=== PATIENT | male | born 1965 | race Caucasian/White ===

== ENCOUNTER 2024-08-22 14:44 | Outpatient (AMB) | payer BC, SELFPAY ==
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
--- OUTSIDE RECORDS SUMMARY | 2024-08-22 14:46 | XMS_ITS | Data Portability ---
Author Organization [place] [facility] [place] Address [address] [place] [id number] Care Team Providers Care Oral And Maxillofacial Surgery Resident Name Role Phone MARY MEYERS Referring Provider Assessment Encounter Date Assessment Date Assessment LastModified by Organization Details LastModified Time 03/07/2024 03/07/2024 Symptoms and exa m are consistent with Right Knee Osteoarthritis. X-rays were reviewed together on the computer together. We reviewed the natural history of osteoarthritis. Diagrams and a model were used to demonstrate the areas of arthritic change. The patient understands that symptoms may progress over time requiring further intervention. We discussed in detail available treatment options. We discussed activity modification, especially avoiding impact type activities. Low or no impact activities such as walking, swimming, elliptical and biking were suggested. We discussed the need for an ongoing maintenance flexibility and strengthening program. This should involve the core musculature, the hip, as well as the quadriceps and hamstrings. Intermittent icing 20 minutes off in 3 to 4 times a day may be helpful for control of swelling. A course of Physical Therapy may be helpful with acute symptoms and progress to a targeted home exercise program. Semb-hhl-bllvfvr anti-inflammatory medications with appropriate GI precautions or Tylenol may be helpful in controlling intermittent symptoms of pain. An assistive device such as a cane may be helpful in unloading the joint. The role of bracing was discussed including off loading brace. Advantages, disadvantages, and limitations of braces were discussed. Advantages of weight loss and maintaining ideal weight was discussed. Injections options, including corticosteroids, gel (Hyaluronic Acid), and platelet rich plasma (PRP) injections were reviewed. After discussion, the patient was eager for an injection. Patient tolerated the injection well. Postinjection instructions given. Frequency of injection was reviewed. Patient will follow-up in 3 to 4 weeks if symptoms have not improved, sooner for any complications. All questions answered to their satisfaction. Patient was seen and evaluated by Anselmo Aguirre PA-C in indirect conjunction with Dr. Clay. The provider agrees with the history, physical examination, recommended tests/diagnostic imaging, and treatment plan. [email or web address] Not available 03/07/2024 16:38:20 04/13/2024 04/13/2024 Marcos has right shoulder pain secondary to glenohumeral arthritis and impingement. He had a recent exacerbation when his dog pulled him. There was no evidence of a high-grade rotator cuff tear. We discussed treatment options. He is not interested in physical therapy. He would like to try corticosteroid injection. After discussion, the patient was eager for an injection. Patient tolerated the injection well. Postinjection instructions given. Frequency of injection was reviewed. Patient will follow-up in 3 to 4 weeks if symptoms have not improved, sooner for any complications. All questions answered to their satisfaction. Realistic expectations were emphasized. Will follow-up in 3 to 4 weeks if symptoms have not improved, sooner for any complications. Not available 04/13/2024 16:06:12 Plan of Treatment Reminders Order Date Submit Date Provider Last Modified By Organization Details Last Modified Time Details Appointments None recorded. Lab None recorded. Referral None recorded. Procedures None recorded. Surgeries None recorded. Imaging XR, knee, 4 or more view 2023 024 [email or web address] 9 [facility], [address], [address], [place], [address], 4 06:47:30 XR, shoulder, 2 or more view 2023 024 [email or web address] 21 [facility], [address], [address], [place], [address], 4 09:38:06 Medication Orders lidocaine (PF) 100 mg/5 mL (2 %) injection syringe 2023 024 Not available 07/09/202 4 16:01:41 triamcinolo ne acetonide 40 mg/mL suspension for injection 2023 024 Not available 4 16:01:41 lidocaine (PF) 100 mg/5 mL (2 %) injection syringe 2023 024 [employer] [facility][id number], [address], [place], [place], [phone], 4 16:09:04 triamcinolo ne acetonide 40 mg/mL suspension for injection 2023 024 [employer] [facility] #[id number], [address], [place], [place], [phone], 4 16:09:04 Patient TargetsNo targets recorded. Patient Instructions Encounter Date Encounter Id Patient Instructions Last Modified By Organization Details Last Modified Time 03/07/2024 [id number] Radiographs: 4 views of {{the Left the Right* Both}} knee(s) were obtained in the {{[facility]* [facility]} } office on {{ 03/07/2024#}} including AP, West, lateral (weightbearing), and sunrise. X-rays demonstrated {{normal* mildly decreased}} bony mineralization. Joint spaces {{well-maintained decrease medially* decrease d Laterally decrease d patellafemoral space decreased medial and lateral decreased medial and patellafemoral dec reased lateral and patellafemoral dec reased all compartments}} {{. subchondral sclerosis, tibial spiking and osteophytosis. sub chondral sclerosis and osteophytosis.#}} No evidence of acute injury or fracture. Findings: {{Normal Osteoarth ritis* Mild Osteoarthritis Mod erate Osteoarthritis Sev ere Endstage Osteoarthritis}} {{Right Knee* Left Knee Both Knees}}. X-ray interpretation by: KANU [email or web address] Not available 03/07/2024 16:37:29 04/13/2024 [id number] Radiographs: 4 Views of the {{Right* Left Bila teral}} shoulder were obtained in the {{[place]* [facility]} } office on {{ 04/13/2024#}} including AP, Grashey, Y and axillary views. X-rays demonstrated {{normal* mildly decreased}} bony mineralization. {{No significant Mild M oderate* Severe}} degenerative changes in the AC joint with {{no* mild moderat e significant}} widening. {{.* Subacromial spur noted.}} Glenohumoral joint space {{well-maintained mildly narrowed moderatel y narrowed* severely narrowed}}{{.* ent hesophytes and degenerative changes in the humeral head.}} {{No abnormal* small la rge}} calcifications in the lateral shoulder{{.* consi stent with calcific tendinitis.}} {{No evidence of acute injury or fracture* No evidence of fracture}}. Interpretation by: Anselmo Aguirre PA-C [email or web address] Not available 04/13/2024 16:10:27 Reason for Referral None Reported. Problems Name Problem SNOMED Code Status Onset Date Resolution Date Notes Provider Name and Address Organization Details Recorded Time Osteoarthri tis of right knee joint 4194880629217 00 Active [address], [place], [address], [place] [facility] 4 16:35:48 Impingement syndrome of right shoulder region 7817919643689 02 Active [address], [place], [address], [place] [facility] 4 16:08:18 Arthritis of right glenohumera l joint 5144002483186 109 Active 2023 ANSELMO AGUIRRE PA-C [address], [place], [address], [place] [facility] 4 16:08:43 Problem Notes None recorded. Procedures Surgical History Date Name Laterality Status Provider Name and Address Organization Details Recorded Time 4 GLENYS Subacromial Shoulder Inj completed [address], [place], [address], [place] [facility] 04/13/2024 16:04:22 4 GLENYS Knee Injection completed ANSELMO AGUIRRE PA-C [address], [place], [address], [place] [facility] 03/07/2024 16:34:45 Knee Surgery completed [facility] 03/07/2024 16:09:06 fusion completed [facility] 03/07/2024 16:09:13 Imaging Results None recorded. Procedure Notes None recorded. Medical Equipment None Reported. Allergies No known drug allergies Medications Name Sig Start Date Stop Date Status Note LastModified by Organization Details LastModified Time gabapentin 600 mg tablet TAKE 1 TABLET BY MOUTH THREE TIMES DAILY active Not Available Not Available No t Available meloxicam 15 mg tablet TAKE 1 TABLET BY MOUTH DAILY active Not Available Not Available No t Available triamcinolone acetonide 40 mg/mL suspension for injection Take 40 mg by injection route. 2023 active Not Available Not Available Not Avai lable levothyroxine 150 mcg tablet TAKE 1 TABLET BY MOUTH DAILY active Not Available Not Available No t Available azelastine 137 mcg (0.1 %) nasal spray USE 1 SPRAY IN EACH NOSTRIL TWICE DAILY NEEDED FOR ALLERGIES active Not Available Not Available No t Available fluticasone propionate 50 mcg/actuation nasal spray,suspens ion SHAKE LIQUID AND USE 1 SPRAY IN EACH NOSTRIL TWICE DAILY active Not Available Not Available No t Available metformin ER 500 mg tablet,extend ed release 24 hr TAKE 3 TABLETS BY MOUTH DAILY active Not Available Not Available No t Available rosuvastatin 10 mg tablet TAKE 1 TABLET BY MOUTH DAILY active Not Available Not Available No t Available BD Ultra-Fine Short Pen Needle 31 gauge x 5/16 USE WITH LANTUS EVERY DAY active Not Available Not Available No t Available FreeStyle Lite Meter kit USE TO TEST BLOOD SUGAR EVERY DAY active Not Available Not Available No t Available FreeStyle Lite Strips USE TO TEST BLOOD SUGAR EVERY DAY active Not Available Not Available No t Available lidocaine (PF) 100 mg/5 mL (2 %) injection syringe Take 4 mL by injection route. 2023 active Not Available Not Available Not Avai william Sarahygltobi (insulin glargine-yfgn ) Pen 100 unit/mL (3 mL) subcutaneous INJECT 20UNITS UNDER THE SKIN EVERY NIGHT AT BEDTIME TITRATE BY 2 UNITS EVERY 5 DAYS UP TO 60 UNITS EVERY DAY active Not Available Not Available No t Available Vitals Date Recorded Body height Body mass index (BMI) Body weight Provider Name and Address Organization Details Last Updated DateTime 03/07/2024 190.5 cm 30 kg/m2 851392.17 g Adriana Brown [place] - [facility], 03/07/2024 16:07:42 Social History Question Answer Notes LastModified by Organizat ion Details LastModified Time Tobacco Smoking Status Former Smoker Adriana Brown [facility], [place] - [facility], 03/07/2024 16:07:54 What Is Your Level Of Alcohol Consumption? None Information not available 03/07/2024 Do You Use Any Illicit Or Recreational Drugs? No Information not available 03/07/2024 Do You Or Have You Ever Used Any Other Forms Of Tobacco Or Nicotine? No Information not available 03/07/2024 Sex: Unknown Functional Status None recorded. Mental Status None recorded. Family History Relationship Description Onset Age of this Age Resolved Age Notes LastModified by Organization Details LastModified Time Mother Arthritis Not available 03/07/2024 16:08:55 Sister Arthritis Not available 03/07/2024 16:08:55 Medical History Condition Response Diabetes Y Past Encounters Encounter ID Performer Location Encounter Start Date Encounter Closed Date Diagnosis/Indication Diagnosis SNOMED-CT Code Diagnosis ICD10 Code [id number] Elías Clay MD [facility] [address] [place] [address], [address] [place] [address] 03/07/2024 15:29:35 03/07/2024 16:31:36 Pain of right knee joint 7599926121 04233 M25.561 Osteoarthr itis of right knee joint 4890463482 98898 M17.11 [id number] Chong Brown MD [facility] [address] [facility] [address] [place] [phone] 04/13/2024 14:56:37 04/13/2024 16:03:26 Pain of right shoulder joint [id number] 7510466 M25.511 Impingemen t syndrome of right shoulder region 0713191201 14378 M75.41 Arthritis of right glenohumeral joint 8084715912 865206 M19.011 Health Concerns Section Related Observation LastModified by Organization Detai ls LastModified Time None Recorded Concern Status LastModified by Organization Details LastModified Time None Recorded Advance Directives Directive None Recorded Payers Encounter Date Sequence Insurance Name Policy Number Policy Huff Covered Member ID Huff Member ID Guarantor Name 03/07/2024 1 [place] [id number] Marcos Aldana [id number] Marcos Aldana 04/13/2024 1 [id number] [id number] Marcos Aldana [id number] Marcos Aldana Notes Date Note Type Note Provider Name and Address Organization Details Recorded Time 03/07/2024 text/html Patient is a 59-year-old male who presents today with right knee pain.Symptoms are progressively worsened with a recent exacerbation. He had been previously seen by Dr. Thomas and had arthroscopy. He did have gel injection in the past with offered some relief. He has noted increased tightness in his knee and limited motion. He presents today for orthopedic urgent care evaluation.Pain is greatest in the medial, but does have some lateral knee pain as well. [address], [place], [address], [place] [facility] 03/07/2024 16:40:30 04/13/2024 text/html Marcos is a 59-year-old male who presents today with right shoulder pain. Symptoms started 40 years ago. He had arthroscopy 20 years ago. 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 He is tolerated his symptoms over the years. Unfortunately, his symptoms were exacerbated a few months ago. He was looking away from his dog who suddenly ran and jerked his shoulder. He had increased pain which he was hoping would improve. Symptoms have persisted. He presents today for orthopedic consultation. No neck pain. No numbness or tingling. [address], [place], [address], [place] [facility] 04/13/2024 16:11:11
--- OUTSIDE RECORDS SUMMARY | 2024-08-22 14:46 | XMS_ITS | Continuity of Care Document ---
Author Organization [facility] Adult Address [address] [place] [address]- Care Team Providers Care Cloth Presser Name Role Phone Micky Rose MD Primary Care Physician [phone] Encounter [facility] Date(s): 07/18/24 - 08/17/24 [facility] [address] [place] [address]- Encounter Type: Triage Allergies, Adverse Reactions, Alerts [...] influenza virus vaccine, inactivated 05/15/13 Chivo rded [id number] 12y+ bivalent booster vax 08/09/22 Recorded SARS-CoV-2 [...] acel(Tdap) 7 07/10/10 Given 1Result Comment: [06/23/2018] [facility] [id number] 2Result Comment: [11/11/2013] per pt history 3Result Comment: [facility] [address] 4Result Comment: [facility] [address] 5Admin Note: [employer] [facility] 6Admin Note: [employer] [facility] 7Admin Note: [employer] Medications azelastine 137 mcg/inh (0.1%) nasal spray 1 sprays, Nares, Both, 2 times a day, PRN Other Allergies, # 1 each, 5 Refills, Maintenance, 05/26/23 3:53:00 PM EDT, [place], [facility] #[id number], Partial fill upon patient request if the prescription is for a schedule II opioid drug., 1 sprays Nares, Both 2 times a day,x30 days,PRN:Other Allergies, 184.25, cm, 05/26/23 15:43:00 EDT, Height Start Date: 05/26/23 Stop Date: 11/22/23 Status: Ordered Quantity: 1.0 Unit: each Repeat number: 6 B-D PEN NDL SHRT [id number](01/13) SELENA B-D PEN NDL SHRT [id number](01/13) SELENA, See Instructions, # 100 each, 0 Refills, DIRECTED WITH SOLOSTAR PEN EVERY DAY, 184.25, cm, 02/06/21 10:11:00 EDT, Height Start Date: 10/17/21 Status: Ordered Quantity: 100.0 Unit: each Repeat number: 1 B-D PEN NDL SHRT [id number](01/13) SELENA B-D PEN NDL SHRT [id number](01/13) SELENA, See Instructions, # 100 each, 3 Refills, Maintenance, DIRECTED WITH SOLOSTAR PEN EVERY DAY, 08/29/22 1:47:00 PM EST, 184.25, cm, 08/11/22 15:58:00 EST, Height Start Date: 08/29/22 Status: Ordered Quantity: 100.0 Unit: each Repeat number: 1 fluticasone 50 mcg/inh nasal spray 1 sprays, Nares, Both, 2 times a day, # 1 each, 11 Refills, Maintenance, 07/07/23 10:35:00 AM EST, [facility] #[id number], Partial fill upon patient request if the [...] 5 Refills, Maintenance, 05/11/24 3:02:00 PM EDT, [facility] #[id number], 184.25, cm, 05/05/24 15:28:00 EDT, Height Start Date: 05/11/24 Status: Ordered Quantity: 90.0 Unit: tablet Repeat number: 1 levothyroxine 150 mcg (0.15 mg) oral tablet 1 tablet, By Mouth, Daily, # 30 tablet, 5 Refills, Maintenance, 06/01/24 11:29:00 AM EDT, [facility] #[id number], 184.25, cm, 05/05/24 15:28:00 EDT, Height Start Date: 06/01/24 Status: Ordered Quantity: 30.0 Unit: tablet Repeat number: 6 meloxicam 15 mg oral tablet 1 tablet, By Mouth, Daily, # 30 tablet, 5 Refills, Maintenance, 05/16/24 11:47:00 AM EDT, [facility] #[id number], 184.25, cm, 05/05/24 15:28:00 EDT, Height Start Date: 05/16/24 Status: Ordered Quantity: 30.0 Unit: tablet Repeat number: 6 MetFORMIN (Eqv-Glucophage XR) 500 mg oral tablet, extended release 3 tablet, By Mouth, Daily, # 90 tablet, 5 Refills, Maintenance, 08/15/24 10:27:00 AM EST, [facility] #[id number], 184.25, cm, 05/05/24 15:28:00 EDT, Height Start Date: 08/15/24 Status: Ordered Quantity: 90.0 Unit: tablet Repeat [...] 200.0 Unit: each Repeat number: 6 Pen Fleming, 31 G x 8 mm BD Ultra [...] 1 Refills, Maintenance, 07/18/24 9:04:00 AM EST, [facility] #[id number], 184.25, cm, 05/05/24 15:28:00 EDT, Height Start Date: 07/18/24 Status: Ordered Quantity: 90.0 Unit: tablet Repeat number: 2 Semglee (Prefilled Pen) 100 units/mL subcutaneous solution See Instructions, INJECT 20UNITS UNDER THE SKIN EVERY NIGHT AT BEDTIME TITRATE BY 2 UNITS EVERY 5 DAYS UP TO 60 UNITS EVERY DAY, # 15 mL, 5 Refills, Maintenance, 01/27/24 10:43:00 AM EDT, [facility] #[id number], 184.25, cm, 09/01/23 16:02:00 EST, Height Start [...] Team Personnel Name: Micky Rose MD Position: [facility] Physician - Primary Care Member Role: PCP Address: [address] [place] [address]- Telecom: Care Team Related Persons Name: SHAKILA JORDAN Insurance Providers Guarantor name: MIKE JORDAN Health Plan Information #: 1 Payer: BLUE BENEFIT [employer] PPO Member Number: NA Policy Number: NA Group Number: NA
--- NOTE | 2024-08-22 14:47 | A.OFFVIS_ITS ---
Vital Signs 08/22/24 14:53 Height 6 ft 3 in Weight 230 lb BMI 28.7 Intake Visit Reasons: Right shoulder pain and weakness Intake Note: Marcos is a 59 year old male who presents with complaints of progressively worsening right shoulder pain and weakness. The patient states that he did undergo right shoulder surgery several years ago. Did fairly well from that surgery initially. The patient states that he re-injured his shoulder approximately 6 months ago while walking his dog. The dog pulled hard on the leash when it saw a squirrel and yanked on his arm. The patient felt a ?pop? at that time. Since that time the patient has had difficulty lifting his right hand above shoulder height. He has failed the last 6 weeks of conservative treatment which has included physical therapy exercises, Tylenol and anti- inflammatory medicines. He reports difficulty lifting his right hand above shoulder height. Has had injections in the past which gave him minimal relief. The most recent injection was several months ago given by another provider. Allergies No Known Allergies Allergy (Verified 08/22/24 14:54) Medication List - Last Reconciled 08/22/24 by Deandre Cordoba MD gabapentin mg PO insulin glargine-yfgn (Semglee (insulin glargine-yfgn) Pen) units subcut levothyroxine mcg PO meloxicam mg PO metformin ER mg PO rosuvastatin mg PO Physical Exam Vital Signs: BMI result Body Mass Index 28.7 Const Other: Well-nourished well-developed very friendly male awake alert and oriented x3 in no acute distress Extrem Other: Bilateral lower extremity examination shows good capillary refill, no skin lesions noted, normal sensation light touch Right shoulder examination shows slightly decreased range of motion when compared to his left shoulder, 4/5 strength with supraspinatus testing, positive impingement signs, tenderness over his acromioclavicular joint, no instability Results Reviewed Results Reviewed: X-rays of the patient's right shoulder show severe acromioclavicular joint narrowing, a type 2 acromion, no acute bony abnormalities Assessment & Plan Assessment & Plan (1) Right shoulder pain: Code(s): M25.511 - Pain in right shoulder Category: Medical (2) Rotator cuff insufficiency of right shoulder: Code(s): M25.311 - Other instability, right shoulder Category: Medical Plan Mr. Moretz presents with progressively worsening right shoulder pain and weakness due to impingement syndrome, acromioclavicular joint arthritis and possible full-thickness rotator cuff tearing. Thus, I will send the patient for an MRI of his right shoulder for further evaluation. I will see him back once the MRI is completed to discuss the findings and treatment options. Feel free to call me at any time should questions regarding his orthopedic management arise. I spent 20 minutes in reviewing the patient's records and imaging studies, seeing the patient and documenting in the medical record. Orders: Orders XR shoulder RT min 2V Today M25.511 - Pain in right shoulder MR shoulder RT wo con Today M25.511 - Pain in right shoulder Coding Level of Care Code New Pt Level 3 (83238) Complex EM visit Add On G2211 Diagnoses Right shoulder pain M25.511 Rotator cuff insufficiency of right shoulder M25.311
[2024-08-22 14:53] VITALS: BMI 28.7
== END 2024-08-22 15:31 | disposition home or self-care (01) ==
PROVIDERS: Visit Provider Orthopaedic Surgery
DX: M25.511 Pain in right shoulder (principal); M25.311 Other instability, right shoulder
CPT/HCPCS: 99203

== ENCOUNTER → 2024-08-22 14:46 | Outpatient (BNV) | payer BC, SELFPAY | PROVIDERS: Visit Provider Radiology Diagnostic Radiology | DX: M19.011 Primary osteoarthritis, right shoulder (principal) | CPT/HCPCS: 73030 ==

== ENCOUNTER 2024-08-22 15:45 | Outpatient (REF) | payer BC, SELFPAY ==
--- NOTE | ~2024-08-22 | XR_ITS ---
EXAMINATION: XR SHOULDER RIGHT CLINICAL INFORMATION: Pain in right shoulder M25.511. COMPARISON: None TECHNIQUE: Two views of the right shoulder. FINDINGS: Normal bone mineralization. No fracture, dislocation, subluxation, or suspicious bone lesion. Mild hypertrophic arthropathy of the AC joint with predominantly superior surface spurring. Laterally downsloping acromion. No loss of the subacromial space. Mild arthritic changes in the glenohumeral joint with gross preservation of joint space. No soft tissue abnormalities. Imaged lung clear. Incidental note made of cervical fusion hardware, incompletely imaged. XR/XR shoulder RT min 2V IMPRESSION: 1. No acute findings right shoulder. 2. Mild osteoarthrosis in the AC joint and glenohumeral joint. Electronically signed by: Curt Reynoso MD 09/14/2024 08:40 AM KRISTEN
--- OUTSIDE RECORDS SUMMARY | 2024-08-25 15:47 | XMS_ITS | Data Portability ---
Author Organization [place] [facility] [place] Address [address] [place] [address] Care Team Providers Care Public School Teacher Name Role Phone MARY MEYERS Referring Provider [...] progress to a targeted home exercise program. Saio-tql-epvnoae anti-inflammatory medications with appropriate GI precautions or [...] examination, recommended tests/diagnostic imaging, and treatment plan. [email or web address] Not available 03/07/2024 16:38:20 04/13/2024 04/13/2024 Marcos [...] have not improved, sooner for any complications. [email or web address] Not available 04/13/2024 16:06:12 Plan of Treatment Reminders Order Date Submit Date Provider Last Modified By Organization Details Last Modified Time Details Appointments None recorded. Lab None recorded. Referral None recorded. Procedures None recorded. Surgeries None recorded. Imaging XR, knee, 4 or more view 2023 024 [email or web address] 9 [facility], [address], [address], [place], [address], 4 06:47:30 XR, shoulder, 2 or more view 2023 024 [email or web address] 21 [facility], [address], [place], [address], 4 09:38:06 Medication Orders lidocaine (PF) 100 mg/5 mL (2 %) injection syringe 2023 024 Not available 07/09/202 4 16:01:41 triamcinolo ne acetonide 40 mg/mL suspension for injection 2023 024 Not available 4 16:01:41 lidocaine (PF) 100 mg/5 mL (2 %) injection syringe 2023 024 Seculert 21 [id number], [address], [place], [place], [phone], 4 16:09:04 triamcinolo ne acetonide 40 mg/mL suspension for injection 2023 024 [email or web address] 21 [facility] #[id number], [address], [place], [place], [phone], 4 16:09:04 Patient TargetsNo targets recorded. Patient Instructions Encounter Date Encounter Id Patient Instructions Last Modified By Organization Details Last Modified Time 03/07/2024 [id number] Radiographs: 4 views of {{the Left the Right* Both}} knee(s) were obtained in the {{[facility]* [facility]} } office on {{ 03/07/2024#}} including [...] KANU Raza21 Not available 03/07/2024 16:37:29 04/13/2024 [id number] Radiographs: 4 Views of the {{Right* Left Bila teral}} shoulder were obtained in the {{[place]* [facility]} } office on {{ 04/13/2024#}} including [...] of fracture}}. Interpretation by: Anselmo Aguirre PA-C Not available 04/13/2024 16:10:27 Reason for Referral None Reported. Problems Name Problem SNOMED Code Status Onset Date Resolution Date Notes Provider Name and Address Organization Details Recorded Time Osteoarthri tis of right knee joint 3098840172053 00 Active [address], [place], [address], [place] [facility], P 4 16:35:48 Impingement syndrome of right shoulder region 1016250821465 02 Active [address], [place], [address], [place] [facility], [facility] 4 16:08:18 Arthritis of right glenohumera l joint 4450201336530 109 Active 2023 ANSELMO AGUIRRE PA-C [address], [place], [address], [place] [facility], [facility] 4 16:08:43 Problem Notes None recorded. Procedures Surgical History Date Name Laterality Status Provider Name and Address Organization Details Recorded Time 4 GLENYS Subacromial Shoulder Inj completed [address], [place], [address], [place] [facility], P 04/13/2024 16:04:22 4 GLENYS Knee Injection completed ANSELMO AGUIRRE PA-C [address], [place], [address], [place] [facility], P 03/07/2024 16:34:45 Knee Surgery completed [facility] - [facility], P 03/07/2024 16:09:06 fusion completed [facility], P 03/07/2024 16:09:13 Imaging Results None recorded. [...] Updated DateTime 03/07/2024 190.5 cm 30 kg/m2 384653.17 g Adriana Brown [place] - [facility], 03/07/2024 16:07:42 Social History Question Answer Notes LastModified by Organizat ion Details LastModified Time Tobacco Smoking Status Former Smoker Adriana Brown [facility], [place] - [facility], 03/07/2024 16:07:54 What Is Your Level Of [...] Diagnosis/Indication Diagnosis SNOMED-CT Code Diagnosis ICD10 Code [id number] Elías Clay MD [facility] [address] [place] [address], [address] [place] [address] 03/07/2024 15:29:35 03/07/2024 16:31:36 Pain of right knee joint 8592474151 83400 M25.561 Osteoarthr itis of right knee joint 1547718153 01390 M17.11 [id number] Chong Brown MD [facility] [address] [facility] [address] [place] [address] 04/13/2024 14:56:37 04/13/2024 16:03:26 Pain of right shoulder joint 8384123869 2115148 M25.511 Impingemen t syndrome of right shoulder region 1679555523 52996 M75.41 Arthritis of right glenohumeral joint 0846190355 428016 M19.011 Health Concerns Section Related Observation LastModified by Organization Detai ls LastModified Time None Recorded Concern Status LastModified by Organization Details LastModified Time None Recorded Advance Directives Directive None Recorded Payers Encounter Date Sequence Insurance Name Policy Number Policy Huff Covered Member ID Huff Member ID Guarantor Name 03/07/2024 1 [place] [id number] Marcos Aldana [id number] Marcos Aldana 04/13/2024 1 [place] [id number] Marcos Aldana [id number] Marcos Aldana Notes Date Note Type [...] pain as well. [address], [place], [address], [place] [facility], P 03/07/2024 16:40:30 04/13/2024 text/html Marcos is a 59-year-old male who presents today with right shoulder pain. Symptoms started 40 years ago. He had arthroscopy 20 years ago. 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 He is tolerated his symptoms over the years. Unfortunately, his symptoms were exacerbated a few months ago. He was looking away from his dog who suddenly ran and jerked his shoulder. He had increased pain which he was hoping would improve. Symptoms have persisted. He presents today for orthopedic consultation. No neck pain. No numbness or tingling. [address], [place], [address], [place] [facility], P 04/13/2024 16:11:11
--- OUTSIDE RECORDS SUMMARY | 2024-08-25 15:47 | XMS_ITS ---
[facility] Name [facility] Organization Unknown History of Medication Use Medication Directions Dispensed Refills Start Date End Date Stat azelastine 137 mcg (0.1 %) nasal spray USE 1 SPRAY IN EACH NOSTRIL TWICE DAILY NEEDED FOR ALLERGIES 04/16/2024 active rosuvastatin 10 mg tablet TAKE 1 TABLET BY MOUTH DAILY 04/16/2024 active BD Ultra-Fine Short Pen Needle 31 gauge x 01/13 USE WITH LANTUS EVERY DAY 04/16/2024 active lidocaine (PF) 100 mg/5 mL (2 %) injection syringe Take 4 mL by injection route. 04/16/2024 active meloxicam 15 mg tablet TAKE 1 TABLET BY MOUTH DAILY 04/16/2024 active fluticasone propionate 50 mcg/actuation nasal spray,suspension SHAKE LIQUID AND USE 1 SPRAY IN EACH NOSTRIL TWICE DAILY 04/16/2024 active metformin ER 500 mg tablet,extended release 24 hr TAKE 3 TABLETS BY MOUTH DAILY 04/16/2024 active levothyroxine 150 mcg tablet TAKE 1 TABLET BY MOUTH DAILY 04/15/2024 active gabapentin 600 mg tablet TAKE 1 TABLET BY MOUTH THREE TIMES DAILY 04/15/2024 active Semglee (insulin glargine-yfgn) Pen 100 unit/mL (3 mL) subcutaneous INJECT 20UNITS UNDER THE SKIN EVERY NIGHT AT BEDTIME TITRATE BY 2 UNITS EVERY 5 DAYS UP TO 60 UNITS EVERY DAY 04/15/2024 active triamcinolone acetonide 40 mg/mL suspension for injection Take 40 mg by injection route. 04/15/2024 active triamcinolone acetonide 40 mg/mL suspension for injection 03/09/2024 active lidocaine (PF) 100 mg/5 mL (2 %) injection syringe 03/09/2024 active Problems Problem Status Onset Date Problem Type Date of Resoluti on Source Osteoarthritis of right knee joint active 2024-03-07 ProblemAct ENS_AONECT Impingement syndrome of right shoulder region active 2024-04-13 ProblemAct ENS_AO NECT Arthritis of right glenohumeral joint active 2024-04-13 ProblemAct ENS_AONEC T
== END 2024-08-22 15:46 | disposition home or self-care (01) ==
LOC: HO.HOSX 15:45
PROVIDERS: Visit Provider Orthopaedic Surgery
DX: M25.511 Pain in right shoulder (principal)
CPT/HCPCS: 73030

== ENCOUNTER → 2024-09-24 11:51 | Outpatient (BNV) | payer OTHER, SELFPAY | PROVIDERS: PCP Internal Medicine; Visit Provider Radiology Diagnostic Radiology | DX: M19.011 Primary osteoarthritis, right shoulder (principal) | CPT/HCPCS: 73221 ==

== ENCOUNTER 2024-09-24 12:01 | Outpatient (REF) | payer OTHER, SELFPAY ==
--- NOTE | ~2024-09-24 | MR_ITS ---
EXAMINATION: MRI RIGHT SHOULDER WITHOUT CONTRAST HISTORY: M25.511 - Pain in right shoulder COMPARISON: Correlation is made with plain films of the right shoulder dated 08/22/2024. TECHNIQUE: Coronal T1, T2, and fat suppressed T2, axial fat suppressed proton density, and sagittal T2 weighted MR images of the right shoulder were obtained. FINDINGS: Bone marrow signal intensity is normal. There is moderate osteoarthritis of the AC joint with cartilage loss and osteophyte formation. There is mild osteoarthritis of the glenohumeral joint. There is no significant joint effusion. There is mild irregularity of the joint surface of the distal supraspinatus tendon, compatible with a partial tear. No definite full-thickness tear is seen. There is no significant fluid in the subdeltoid/subacromial bursa. The infraspinatus, teres minor, and subscapularis tendons are intact. The biceps tendon is normally located. The glenoid labrum is grossly unremarkable in appearance. MR/MR shoulder RT wo con IMPRESSION: 1. Moderate osteoarthritis of the AC joint. Mild osteoarthritis of the glenohumeral joint. 2. Findings compatible with a partial joint surface tear of the distal supraspinous tendon. No definite full-thickness tear is seen. Electronically signed by: Lorne Bae MD 09/26/2024 09:58 AM EST
--- NOTE | ~2024-09-24 | XR_ITS ---
CLINICAL HISTORY: PRE MRI ORBITS MRI Screening XR PRE MRI SCREENING Comparison: None Findings: No acute fractures. No sinus fluid. Mastoids are clear. No radiopaque foreign body. IMPRESSION: 1. No metallic foreign bodies in the orbits. This document has been electronically signed by: Paulo Stallings MD on 09/24/2024 11:37:51
--- OUTSIDE RECORDS SUMMARY | 2024-09-24 12:17 | XMS_ITS | Data Portability ---
Author Organization [place] [facility] [place] Address [address] [place] [address] Care Team Providers Care Bead Maker Name Role Phone MARY MEYERS Referring Provider [phone] Assessment Encounter Date Assessment Date Assessment LastModified [...] progress to a targeted home exercise program. Unbs-pzj-bwmgocd anti-inflammatory medications with appropriate GI precautions or [...] examination, recommended tests/diagnostic imaging, and treatment plan. [email or web address] Not available 03/07/2024 16:38:20 04/13/2024 04/13/2024 Marcos [...] have not improved, sooner for any complications. [email or web address] Not available 04/13/2024 16:06:12 Plan of Treatment Reminders Order Date Submit Date Provider Last Modified By Organization Details Last Modified Time Details Appointments None recorded. Lab None recorded. Referral None recorded. Procedures None recorded. Surgeries None recorded. Imaging XR, knee, 4 or more view 2023 024 [email or web address] 9 [facility], [address], [address], [place], [address], 4 06:47:30 XR, shoulder, 2 or more view 2023 024 [email or web address] 21 [facility], [address], [place], [address], 4 09:38:06 Medication Orders lidocaine (PF) 100 mg/5 mL (2 %) injection syringe 2023 024 Not available 07/09/202 4 16:01:41 triamcinolo ne acetonide 40 mg/mL suspension for injection 2023 024 Not available 4 16:01:41 lidocaine (PF) 100 mg/5 mL (2 %) injection syringe 2023 024 Plated 21 [id number], [address], [place], [place], [phone], 4 16:09:04 triamcinolo ne acetonide 40 mg/mL suspension for injection 2023 024 Plated 21 [facility][id number], [address], [place], [place], [phone], 4 16:09:04 Patient TargetsNo targets recorded. Patient Instructions Encounter Date Encounter Id Patient Instructions Last Modified By Organization Details Last Modified Time 03/07/2024 [id number] Radiographs: 4 views of {{the Left the Right* Both}} knee(s) were obtained in the {{[facility]* [facility]} } office on {{ 03/07/2024#}} including [...] KANU Raza21 Not available 03/07/2024 16:37:29 04/13/2024 [id number] Radiographs: 4 Views of the {{Right* Left Bila teral}} shoulder were obtained in the {{[facility]* [facility]} } office on {{ 04/13/2024#}} including [...] of fracture}}. Interpretation by: Anselmo Aguirre PA-C [email or web address] Not available 04/13/2024 16:10:27 Reason for Referral None Reported. Problems Name Problem SNOMED Code Status Onset Date Resolution Date Notes Provider Name and Address Organization Details Recorded Time Osteoarthri tis of right knee joint 5264342798670 00 Active [address], [place], [address], [place] [facility], [facility] 4 16:35:48 Impingement syndrome of right shoulder region 8112977419620 02 Active [address], [place], [address], [place] [facility], [facility] 4 16:08:18 Arthritis of right glenohumera l joint 2805103237309 109 Active 2023 ANSELMO AGUIRRE PA-C [address], [place], [address], [place] [facility], [facility] 4 16:08:43 Problem Notes None recorded. Procedures Surgical History Date Name Laterality Status Provider Name and Address Organization Details Recorded Time 4 GLENYS Subacromial Shoulder Inj completed [address], [place], [address], [place] [facility], P 04/13/2024 16:04:22 4 GLENYS Knee Injection completed ANSELMO AGUIRRE PA-C [address], [place], [address], [place] [facility], P 03/07/2024 16:34:45 Knee Surgery completed [facility], P 03/07/2024 16:09:06 fusion completed [facility], P 03/07/2024 16:09:13 Imaging Results None recorded. [...] Updated DateTime 03/07/2024 190.5 cm 30 kg/m2 651862.17 g Adriana Brown [place] - [facility], 03/07/2024 16:07:42 Social History Question Answer Notes LastModified by Organizat ion Details LastModified Time Tobacco Smoking Status Former Smoker Adriana Brown [facility], [place] - [facility], 03/07/2024 16:07:54 What Is Your Level Of Alcohol Consumption? None [email or web address] Information not available 03/07/2024 Do You Use [...] Diagnosis/Indication Diagnosis SNOMED-CT Code Diagnosis ICD10 Code Diagnosis Note [id number] Elías Clay MD [facility] [address] [place] [address] [address] [place] [address] 03/07/2024 15:29:35 03/07/2024 16:31:36 Pain of right knee joint 3719047813 78031 M25.561 Additional diagnosis detail: Pain in joint of right knee Osteoarthr itis of right knee joint 6164229230 56108 M17.11 Additional diagnosis detail: Primary osteoarthr itis of right knee 70869 Chong Brown MD [address] [place] [address] 04/13/2024 14:56:37 04/13/2024 16:03:26 Pain of right shoulder joint 3276855973 8613799 M25.511 Impingemen t syndrome of right shoulder region 3533026993 17477 M75.41 Arthritis of right glenohumeral joint 2867780413 840738 M19.011 Health Concerns Section Related Observation LastModified by Organization Detai ls LastModified Time None Recorded Concern Status LastModified by Organization Details LastModified Time None Recorded Advance Directives Directive None Recorded Payers Encounter Date Sequence Insurance Name Policy Number Policy Huff Covered Member ID Huff Member ID Guarantor Name 03/07/2024 1 [place] [id number] Marcos Aldana [id number] Marcos Aldana 04/13/2024 1 [place] [id number] Marcos Aldana [id number] Marcos Aldana Notes Date Note Type [...] pain as well. [address], [place], [address], [place] [facility], [facility] 03/07/2024 16:40:30 04/13/2024 text/html Marcos is a 59-year-old male who presents today with right shoulder pain. Symptoms started 40 years ago. He had arthroscopy 20 years ago. 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 He is tolerated his symptoms over the years. Unfortunately, his symptoms were exacerbated a few months ago. He was looking away from his dog who suddenly ran and jerked his shoulder. He had increased pain which he was hoping would improve. Symptoms have persisted. He presents today for orthopedic consultation. No neck pain. No numbness or tingling. [address], [place], [address], [place] [facility], [facility] 04/13/2024 16:11:11
--- OUTSIDE RECORDS SUMMARY | 2024-09-24 12:18 | XMS_ITS | Clinical Summary ---
Author Organization [facility] Address [address] [place] [address] Care Team Providers Care It Support Consultant Name Role Phone Micky Rose MD Primary Care Provider [phone] Social History Tobacco Use Types Packs/Day Years Used Date Smoking Tobacco: Never Assessed Sex and Gender Information Value Date Recorded Sex Assigned at Not on file Gender Identity Not on file Sexual Orientation Not on file Job Start Date Occupation Industry Not on file Not on file Not on file Plan of Treatment Upcoming Encounters Date Type Department Care Team (Late st Contact Info) Description 10/25/2024 2:30 PM EST Office Visit Gastroenterology - [address] [facility] [address] [place] [phone] Ray Agosto MD [address] [facility] [address] [place] [address] Health Maintenance Due Date Last Done Comments DTaP,Tdap,and Td Vaccines (1 - Tdap) 1982 Zoster Vaccines (1 of 2) 2013 COVID-19 Vaccine ( - 2023-2 5 season) 2024 Influenza Vaccine (#1) 2024 Cholesterol Screening (Lipid Panel) 08/29/2024 Colorectal Cancer Screening: Colonoscopy 08/29/2024 Depression Screening 08/29/2024 HIV Screening 08/29/2024 Hepatitis C Screening 08/29/2024 Social Influencers of Health Screening 08/29/2024 RSV Immunization Patients 60 + Years Old (1 - 1-dose 75+ series) 2038 HIB Vaccines Aged Out No longer eligi ble based on patient's age to complete this topic HPV Vaccines Aged Out No longer eligi ble based on patient's age to complete this topic Hepatitis A Vaccines Aged Out No long er eligible based on patient's age to complete this topic Hepatitis B Vaccines Aged Out No long er eligible based on patient's age to complete this topic IPV Vaccines Aged Out No longer eligi ble based on patient's age to complete this topic MMR Vaccines Aged Out No longer eligi ble based on patient's age to complete this topic Meningococcal ACWY Vaccine Aged Out N o longer eligible based on patient's age to complete this topic Pneumococcal Vaccine: Pediat rics (0 to 5 Years) and At-Risk Patients (6 to 64 Years) Aged Out No longer eligible b ased on patient's age to complete this topic RSV Immunization Patients Un yomaira 20 months Aged Out No longer eligible b ased on patient's age to complete this topic Varicella Vaccines Aged Out No longer eligible based on patient's age to complete this topic Care Teams It Support Consultant Relationship Specialty Start Date End Date Micky Rose MD [address] [place] [address] PCP - General Internal Medicine 08/29/24
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
== END 2024-09-24 12:02 | disposition home or self-care (01) ==
LOC: HO.MRI 12:01
PROVIDERS: PCP Internal Medicine; Visit Provider Orthopaedic Surgery
DX: M25.511 Pain in right shoulder (principal)
CPT/HCPCS: 73221

== ENCOUNTER 2024-11-08 14:44 | Outpatient (AMB) | payer OTHER, SELFPAY ==
[2024-11-08 14:47] VITALS: BMI 28.7
--- NOTE | 2024-11-08 14:47 | A.OFFVIS_ITS ---
Vital Signs 11/08/24 14:47 Height 6 ft 3 in Weight 230 lb BMI 28.7 Intake Visit Reasons: Right shoulder pain and stiffness Intake Note: Marcos is a 59 year old male who presents with complaints of progressively worsening right shoulder pain and stiffness. The patient states that he did undergo right shoulder surgery several years ago. Did fairly well from that surgery initially. The patient states that he re-injured his shoulder approximately 6 months ago while walking his dog. The dog pulled hard on the leash when it saw a squirrel and yanked on his arm. The patient felt a ?pop? at that time. Since that time the patient has had difficulty lifting his right hand above shoulder height. He has failed the last 6 weeks of conservative treatment which has included physical therapy exercises, Tylenol and anti- inflammatory medicines. He reports difficulty lifting his right hand above shoulder height. Has had injections in the past which gave him minimal relief. The most recent injection was several months ago given by another provider. Allergies No Known Allergies Allergy (Verified 11/08/24 14:47) Medication List - Last Reconciled 11/08/24 by Deandre Cordoba MD gabapentin mg PO insulin glargine-yfgn (Semglee (insulin glargine-yfgn) Pen) units subcut levothyroxine mcg PO meloxicam mg PO metformin ER mg PO rosuvastatin mg PO Physical Exam Vital Signs: BMI result Body Mass Index 28.7 Const Other: Well-nourished well-developed very friendly male awake alert and oriented x3 in no acute distress Extrem Other: Bilateral upper extremity examination shows good capillary refill, no skin lesions noted, normal sensation light touch Right shoulder examination shows decreased active and passive range of motion when compared to his left shoulder, 4+ out of 5 strength with supraspinatus testing, positive impingement signs, tenderness over his acromioclavicular joint, no instability Results Reviewed Results Reviewed: MRI of the patient's right shoulder show severe acromioclavicular joint narrowing, a type 2 acromion, signal change within the supraspinatus tendon most likely due to adhesive capsulitis Assessment & Plan Assessment & Plan (1) Impingement syndrome of right shoulder: Code(s): M75.41 - Impingement syndrome of right shoulder Category: Medical Plan Mr. Aldana presents with progressively worsening right shoulder pain and stiffness due to impingement syndrome, acromioclavicular joint arthritis and adhesive capsulitis. I had a lengthy discussion with the patient regarding the treatment options. At this point the patient has failed continued non operative treatments. The risks and benefits of right shoulder arthroscopic surgery were discussed at length with the patient. The patient wishes to proceed with surgery. Surgery will most likely involve right shoulder diagnostic arthroscopy with distal clavicle excision, acromioplasty, capsular release and manipulation under anesthesia. The patient will be scheduled for next available date. He will follow-up as instructed. Feel free to call me at any time should questions regarding his orthopedic management arise. I spent 21 minutes in reviewing the patient's records and imaging studies, seeing the patient and documenting in the medical record. Coding Level of Care Code Est Pt Level 3 (08065) Complex EM visit Add On G2211 Diagnoses Impingement syndrome of right shoulder M75.41
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
--- OUTSIDE RECORDS SUMMARY | 2024-11-08 18:05 | XMS_ITS | Data Portability ---
Author Organization [place] [facility] [place] Address [address] [place] [id number] Care Team Providers Care Coding Advisor Name Role Phone MARY MEYERS Referring Provider [phone] Assessment Encounter Date Assessment Date Assessment LastModified [...] progress to a targeted home exercise program. Locg-wgp-[id number] anti-inflammatory medications with appropriate GI precautions or [...] examination, recommended tests/diagnostic imaging, and treatment plan. [email or web address] Not available 03/07/2024 16:38:20 04/13/2024 04/13/2024 Marcos [...] have not improved, sooner for any complications. [email or web address] Not available 04/13/2024 16:06:12 Plan of Treatment Reminders Order Date Submit Date Provider Last Modified By Organization Details Last Modified Time Details Appointments None recorded. Lab None recorded. Referral None recorded. Procedures None recorded. Surgeries None recorded. Imaging XR, shoulder, 2 or more view 2023 024 [email or web address], [address], [address], [place], [address], 4 09:38:06 XR, knee, 4 or more view 2023 024 [email or web address] 9 [facility], [address], [place], [address], 4 06:47:30 Medication Orders lidocaine (PF) 100 mg/5 mL (2 %) injection syringe 2023 024 [place] [address] [facility][id number], [address], [place], [place], [id number], 4 16:09:04 triamcinolo ne acetonide 40 mg/mL suspension for injection 2023 024 dana 21 [facility][id number], [address], [place], [place], [id number], 4 16:09:04 lidocaine (PF) 100 mg/5 mL (2 %) injection syringe 2023 024 Not available 4 16:01:41 triamcinolo ne acetonide 40 mg/mL suspension for injection 2023 024 Not available 16:01:41 Patient TargetsNo targets recorded. Patient Instructions Encounter Date Encounter Id Patient Instructions Last Modified By Organization Details Last Modified Time 03/07/2024 [id number] Radiographs: 4 views of {{the Left the Right* Both}} knee(s) were obtained in the {{Owlin* Dinesh} } office on {{ 03/07/2024#}} including [...] KANU [email or web address] Not available 03/07/2024 16:37:29 04/13/2024 [id number] Radiographs: 4 Views of the {{Right* Left Bila teral}} shoulder were obtained in the {{Alleman* Dinesh} } office on {{ 04/13/2024#}} including [...] of fracture}}. Interpretation by: Anselmo Aguirre PA-C [email or web address] Not available 04/13/2024 16:10:27 Reason for Referral None Reported. Problems Name Problem SNOMED Code Status Onset Date Resolution Date Notes Provider Name and Address Organization Details Recorded Time Osteoarthri tis of right knee joint 0354419754714 00 Active [address], [place], [address], [place] [facility], [facility] 4 16:35:48 Impingement syndrome of right shoulder region 6888942554043 02 Active [address], [place], [address], [place] [facility], P 4 16:08:18 Arthritis of right glenohumera l joint 9105280751105 109 Active 2023 ANSELMO AGUIRRE PA-C [address], [place], [address], [place] [facility], P 4 16:08:43 Problem Notes None recorded. Procedures Surgical History Date Name Laterality Status Provider Name and Address Organization Details Recorded Time 4 GLENYS Subacromial Shoulder Inj completed [address], [place], [address], [place] [facility], P 04/13/2024 16:04:22 4 GLENYS Knee Injection completed ANSELMO AGUIRRE PA-C [address], [place], [address], [place] [facility], P 03/07/2024 16:34:45 Knee Surgery completed [facility] - [facility], P 03/07/2024 16:09:[address] [facility], P 03/07/2024 16:09:13 Imaging Results None recorded. [...] Updated DateTime 03/07/2024 190.5 cm 30 kg/m2 213460.17 g Adriana Brown MD - [facility], 03/07/2024 16:07:42 Social History Question Answer Notes LastModified by Organizat ion Details LastModified Time Tobacco Smoking Status Former Smoker Adriana Brown [facility], [place] - [facility], 03/07/2024 16:07:54 What Is Your Level Of [...] SNOMED-CT Code Diagnosis ICD10 Code Diagnosis Note [id number] Elías Clay MD [facility] [address] [place] [address] [address] [place] [address] 03/07/2024 15:29:35 03/07/2024 16:31:36 Pain of right knee joint 3535201346 11362 M25.561 Additional diagnosis detail: Pain in joint of right knee Osteoarthr itis of right knee joint 6280504302 61766 M17.11 Additional diagnosis detail: Primary osteoarthr itis of right knee 28961 Chong Brown MD [address] [place] [phone] 04/13/2024 14:56:37 04/13/2024 16:03:26 Pain of right shoulder joint 9484861649 [id number] M25.511 Impingemen t syndrome of right shoulder region 9126124290 94706 M75.41 Arthritis of right glenohumeral joint 3615500033 264153 M19.011 Health Concerns Section Related Observation LastModified by Organization Detai ls LastModified Time None Recorded Concern Status LastModified by Organization Details LastModified Time None Recorded Advance Directives Directive None Recorded Payers Encounter Date Sequence Insurance Name Policy Number Policy Huff Covered Member ID Huff Member ID Guarantor Name 03/07/2024 1 [place] [id number] Marcos Aldana [id number] Marcos Aldana 04/13/2024 1 [place] [id number] Marcos Aldana [id number] Marcos Aldana Notes Date Note Type [...] pain as well. [address], [place], [address], [place] [facility], [facility] 03/07/2024 16:40:30 04/13/2024 text/html Marcos is a 59-year-old male who presents today with right shoulder pain. Symptoms started 40 years ago. He had arthroscopy 20 years ago. 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 He is tolerated his symptoms over the years. Unfortunately, his symptoms were exacerbated a few months ago. He was looking away from his dog who suddenly ran and jerked his shoulder. He had increased pain which he was hoping would improve. Symptoms have persisted. He presents today for orthopedic consultation. No neck pain. No numbness or tingling. [address], [place], [address], [place] [facility], [facility] 04/13/2024 16:11:11
--- OUTSIDE RECORDS SUMMARY | 2024-11-08 18:05 | XMS_ITS | Continuity of Care Document ---
Author Organization [facility] Address [address] [place] [address]- Care Team Providers Care Hedge Fund Principal Name Role Phone Micky Rose MD Primary Care Physician [place] [facility] [place]04[place]24 - 11/03/24 [facility] [address] [place] [address]- Encounter Type: Triage Allergies, Adverse Reactions, Alerts [...] influenza virus vaccine, inactivated 05/15/13 Chivo rded [id number] 12y+ bivalent booster vax 08/09/22 Recorded SARS-CoV-2 [...] acel(Tdap) 7 07/10/10 Given 1Result Comment: [06/23/2018] [facility] [id number] 2Result Comment: [11/11/2013] per pt history 3Result Comment: [place] [facility] [address] 4Result Comment: [facility] [address] 5Admin Note: [facility] 6Admin Note: [facility] 7Admin Note: [facility] Medications azelastine 137 mcg/inh (0.1%) nasal spray 1 sprays, Nares, Both, 2 times a day, PRN Other Allergies, # 1 each, 5 Refills, Maintenance, 05/26/23 3:53:00 PM EDT, [place], [facility] #[id number], Partial fill upon patient request if the prescription is for a schedule II opioid drug., 1 sprays Nares, Both 2 times a day,x30 days,PRN:Other Allergies, 184.25, cm, 05/26/23 15:43:00 EDT, Height Start Date: 05/26/23 Stop Date: 11/22/23 Status: Ordered Quantity: 1.0 Unit: each Repeat number: 6 B-D PEN NDL SHRT [id number](01/13) SELENA B-D PEN NDL SHRT [id number](01/13) SELENA, See Instructions, # 100 each, 0 Refills, DIRECTED WITH SOLOSTAR PEN EVERY DAY, 184.25, cm, 02/06/21 10:11:00 EDT, Height Start Date: 10/17/21 Status: Ordered Quantity: 100.0 Unit: each Repeat number: 1 B-D PEN NDL SHRT [id number](01/13) SELENA B-D PEN NDL SHRT [id number](01/13) SELENA, See Instructions, # 100 each, 0 Refills, Maintenance, USE WITH LANTUS EVERY DAY, 10/04/24 11:00:00 AM EST, 184.25, cm, 10/03/24 15:33:00 EST, Height Start Date: 10/04/24 Status: Ordered Quantity: 100.0 Unit: each Repeat number: 1 B-D PEN NDL SHRT [id number](01/13) SELENA B-D PEN NDL SHRT [id number](01/13) SELENA, See Instructions, # 100 each, 3 Refills, Maintenance, DIRECTED WITH SOLOSTAR PEN EVERY DAY, 08/29/22 1:47:00 PM EST, 184.25, cm, 08/11/22 15:58:00 EST, Height Start Date: 08/29/22 Status: Ordered Quantity: 100.0 Unit: each Repeat number: 1 fluticasone 50 mcg/inh nasal spray 1 sprays, Nares, Both, 2 times a day, # 1 each, 11 Refills, Maintenance, 07/07/23 10:35:00 AM EST, [facility] #[id number], Partial fill upon patient request if the [...] 5 Refills, Maintenance, 05/11/24 3:02:00 PM EDT, [facility] #[id number], 184.25, cm, 05/05/24 15:28:00 EDT, Height Start Date: 05/11/24 Status: Ordered Quantity: 90.0 Unit: tablet Repeat number: 1 levothyroxine 150 mcg (0.15 mg) oral tablet 1 tablet, By Mouth, Daily, # 30 tablet, 5 Refills, Maintenance, 06/01/24 11:29:00 AM EDT, [facility] #[id number], 184.25, cm, 05/05/24 15:28:00 EDT, Height Start Date: 06/01/24 Status: Ordered Quantity: 30.0 Unit: tablet Repeat number: 6 meloxicam 15 mg oral tablet 1 tablet, By Mouth, Daily, # 30 tablet, 5 Refills, Maintenance, 05/16/24 11:47:00 AM EDT, [facility] #[id number], 184.25, cm, 05/05/24 15:28:00 EDT, Height Start Date: 05/16/24 Status: Ordered Quantity: 30.0 Unit: tablet Repeat number: 6 MetFORMIN (Eqv-Glucophage XR) 500 mg oral tablet, extended release 3 tablet, By Mouth, Daily, # 90 tablet, 5 Refills, Maintenance, 08/15/24 10:27:00 AM EST, [facility] #[id number], 184.25, cm, 05/05/24 15:28:00 EDT, Height Start [...] 200.0 Unit: each Repeat number: 6 Pen [place], 31 G x 8 mm BD Ultra [...] 1 Refills, Maintenance, 07/18/24 9:04:00 AM EST, [facility] #[id number], 184.25, cm, 05/05/24 15:28:00 EDT, Height Start Date: 07/18/24 Status: Ordered Quantity: 90.0 Unit: tablet Repeat number: 2 Semglee (Prefilled Pen) 100 units/mL subcutaneous solution See Instructions, INJECT 20UNITS UNDER THE SKIN EVERY NIGHT AT BEDTIME TITRATE BY 2 UNITS EVERY 5 DAYS UP TO 60 UNITS EVERY DAY, # 15 mL, 5 Refills, Maintenance, 01/27/24 10:43:00 AM EDT, [facility] #[id number], 184.25, cm, 09/01/23 16:02:00 EST, Height Start Date: 01/27/24 Status: Ordered Quantity: 15.0 Unit: mL Repeat number: 1 sertraline 100 mg oral tablet 1 tablet = 100 mg, By Mouth, Daily, dose increase, # 30 tablet, 11 Refills, Maintenance, 10/03/24 3:42:00 PM EST, [place], [facility] #[id number], Partial fill upon patient request if the [...] Team Personnel Name: Micky Rose MD Position: [facility] Physician - Primary Care Member Role: PCP Address: [address] [place] [id number] Telecom: Care Team Related Persons Name: SHAKILA JORDAN Insurance Providers Guarantor name: MIKE JORDAN Health Plan Information #: 1 Payer: [employer] PPO Member Number: NA Policy Number: NA Group Number: NA
--- OUTSIDE RECORDS SUMMARY | 2024-11-08 18:05 | XMS_ITS | Encounter Summary ---
Author Organization [facility] Address [address] [place] [address] Care Team Providers Care Turn Down Man Name Role Phone Micky Rose MD Primary Care Provider [phone] Reason for Visit * Imaging (Routine) - Pending Review Specialty Diagnoses / Procedures Referred By Keshia ley Referred To Contact Radiology Diagnoses BRONSON (nonalcoholic steatohepatitis) Procedures US Abdomen Limited US Abdomen Complete Ray Agosto MD [address] [address] Phone: tel: fax: [address] [address] Phone: tel: Referral ID Status Reason Start Date Expiration Date V isits Requested Visits Authorized [id number] Pending Review 10/25/2024 10/25/2025 1 1 Encounter Details Date Type Department Care Team (Latest Contact Info) Description 11/02/2024 6:42 AM EST - 11/02/2024 11:59 PM EST Hospital Encounter [facility] Ultrasound [address] [place] [address] BRONSON (nonalcoholic steatohepatitis) Discharge Disposition: Home or Self Care Social History Tobacco Use Types Packs/Day Years Used Date Smoking Tobacco: Some Days Cigarettes Smokeless Tobacco: Never Alcohol Use Standard Drinks/Week Comments Yes 0 (1 standard drink = 0.6 oz pur e alcohol) Sex and Gender Information Value Date Recorded Sex Assigned at Male 10/26/2024 11:30 AM EST Legal Sex Male 1:03 AM EST Gender Identity Male 10/26/2024 11:30 AM EST Sexual Orientation Straight 10/26/2024 11 :30 AM EST documented as of this encounter Medications at Time of Discharge BD Ultra-Fine Short Pen Needle 31 gauge x 5/16 needle 1 each by subcutaneous (via wearable injector) route 1 (one) time. 10/04/2024 blood sugar diagnostic (FreeStyle Lite Strips) test strip 1 each by Other route 1 (one) time. 07/05/2024 FreeStyle Lite Meter monitoring kit 1 each by subcutaneous (via wearable injector) route if needed. 11/23/2023 gabapentin (NEURONTIN) 600 mg tablet Take 1 tablet (600 mg total) by mouth 2 (two) times a day. levothyroxine (SYNTHROID, LEVOTHROID) 150 mcg tablet Take 1 tablet (150 mcg total) by mouth 1 (one) time each day. meloxicam (MOBIC) 15 mg tablet Take 1 tablet (15 mg total) by mouth 1 (one) time each day. 10/06/2024 metFORMIN XR (GLUCOPHAGE-XR) 500 mg 24 hr tablet Take 3 tablets (1,500 mg total) by mouth 1 (one) time each day. 10/17/2024 rosuvastatin (CRESTOR) 10 mg tablet Take 1 tablet (10 mg total) by mouth. 07/18/2024 sertraline (ZOLOFT) 50 mg tablet Take 1 tablet (50 mg total) by mouth 1 (one) time each day. 10/10/2024 documented as of this encounter Discharge Disposition Disposition Code Departure Means Destination Home or Self Care documented in this encounter Plan of Treatment Upcoming Encounters Date Type Department Care Team (Late st Contact Info) Description 12/23/2024 7:30 AM EDT Appointment [facility] Endoscopy [address] [place] [phone] Ray Agosto MD [address] [address] documented as of this encounter Procedures Procedure Name Priority Date/Time Associated Diagnosis Comments US ABDOMEN LIMITED Routine 11/02/2024 7: 08 AM EST BRONSON (nonalcoholic steatohepatitis) documented in this encounter Results * US Abdomen Limited (11/02/2024 7:08 AM EST) Anatomical Region Laterality Modality Body Ultrasound 11/07/2024 9:28 AM EDT Impressions 11/07/2024 9:33 AM EDT Resolved fatty infiltration of the liver. -------- FINAL REPORT -------- Dictated By: Tommie Pardo Dictated Date: 11/07/2024 09:28 ET Assigned Physician: Tommie Pardo Reviewed and Electronically Signed By: Tommie Pardo Signed Date: 11/07/2024 09:33 ET Workstation ID: [id number] Transcribed By: Self Edit Transcribed Date: 11/07/2024 09:28 ET Narrative 11/07/2024 9:33 AM EDT INDICATION: ??Fatty liver FINDINGS: Ultrasound of the right upper quadrant performed. Prior relevant studies: October 28, 2017 Pancreas: Visualized portions of the pancreas are within normal limits. Liver: 14.2 cm in length sagittally with normal echogenicity. Previously noted diffuse hepatic echogenicity has resolved. No solid mass or intrahepatic ductal dilatation. Portal vein patent with hepatopedal flow. Gallbladder: Cholelithiasis again noted without evidence of acute cholecystitis. At least 2 mobile stones are noted largest measuring up to 2.5 cm. Common bile duct: 5 mm Right kidney: Survey images are within normal limits. Ascites: None Procedure Note Tommie Pardo MD - 11/07/2024 INDICATION: Fatty liver FINDINGS: Ultrasound of the right upper quadrant performed. Prior relevant studies: October 28, 2017 Pancreas: Visualized portions of the pancreas are within normal limits. Liver: 14.2 cm in length sagittally with normal echogenicity. Previouslynoted diffuse hepatic echogenicity has resolved. No solid mass orintrahepatic ductal dilatation. Portal vein patent with hepatopedalflow. Gallbladder: Cholelithiasis again noted without evidence of acutecholecystitis. At least 2 mobile stones are noted largest measuring up to2.5 cm. Common bile duct: 5 mm Right kidney: Survey images are within normal limits. Ascites: None IMPRESSION: Resolved fatty infiltration of the liver. -------- FINAL REPORT -------- Dictated By: Tommie Pardo Dictated Date: 11/07/2024 09:28 ET Assigned Physician: Tommie Pardo Reviewed and Electronically Signed By: Tommie Pardo Signed Date: 11/07/2024 09:33 ET Workstation ID: [id number] Transcribed By: Self Edit Transcribed Date: 11/07/2024 09:28 ET us Ray Agosto MD IMG US PROCEDURES Final Resul t documented in this encounter Visit Diagnoses Diagnosis BRONSON (nonalcoholic steatohepatitis) Other chronic nonalcoholic liver disease documented in this encounter Care Teams Turn Down Man Relationship Specialty Start Date End Date Micky Rose MD [address] [facility] [place] [address] PCP - General Internal Medicine 08/29/24 documented as of this encounter
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
--- OUTSIDE RECORDS SUMMARY | 2024-11-08 18:05 | XMS_ITS | Encounter Summary ---
Author Organization [facility] Address [address] [place] [address] Care Team Providers Care Certified Medical Coder Name Role Phone Micky Rose MD Primary Care Provider [phone] Reason for Visit * Reason Onset Date Comments Results 11/07/2024 Encounter Details Date Type Department Care Team (Late Contact Info) Description 11/07/2024 Telephone Gastroenterology - [address] [phone] Arielle Last [place] Results Social History Tobacco Use Types Packs/Day Years [...] AM EST documented as of this encounter Progress Notes * Arielle Last [place] - 11/07/2024 11:[address] Agosto told pt ultrasound normal. Liver normal follow, current plan repeat ultrasound 1yr. documented in this encounter Plan of Treatment Upcoming Encounters Date Type Department Care Team (Late st Contact Info) Description 12/23/2024 7:30 AM EDT Appointment [facility] Endoscopy [address] [place] [phone] Ray Agosto MD [address] [address] documented as of this encounter Visit Diagnoses Not on filedocumented in this encounter Care Teams Certified Medical Coder Relationship Specialty Start Date End Date Micky Rose MD [address] [place] [address] PCP - General Internal Medicine 08/29/24 documented as of this encounter
--- OUTSIDE RECORDS SUMMARY | 2024-11-08 18:05 | XMS_ITS | Continuity of Care Document ---
Author Organization [facility] Address [address] [place] [address]- Care Team Providers Care Waste Machine Offbearer Name Role Phone Micky Rose MD Primary Care Physician [phone] [place] [facility] [place](s): 09/14/24 - 10/14/24 [facility] [address] [place] [address]- Encounter Type: Triage Allergies, Adverse Reactions, Alerts [...] influenza virus vaccine, inactivated 05/15/13 Chivo rded [id number] 12y+ bivalent booster vax 08/09/22 Recorded SARS-CoV-2 [...] acel(Tdap) 7 07/10/10 Given 1Result Comment: [06/23/2018] [facility] [id number] 2Result Comment: [11/11/2013] per pt history 3Result Comment: [facility] [address] 4Result Comment: [facility] [address] 5Admin Note: [facility] 6Admin Note: [facility] 7Admin Note: Boostrix Medications azelastine 137 mcg/inh (0.1%) nasal spray 1 sprays, Nares, Both, 2 times a day, PRN Other Allergies, # 1 each, 5 Refills, Maintenance, 05/26/23 3:53:00 PM EDT, [place], [facility][id number], Partial fill upon patient request if the prescription is for a schedule II opioid drug., 1 sprays Nares, Both 2 times a day,x30 days,PRN:Other Allergies, 184.25, cm, 05/26/23 15:43:00 EDT, Height Start Date: 05/26/23 Stop Date: 11/22/23 Status: Ordered Quantity: 1.0 Unit: each Repeat number: 6 B-D PEN NDL SHRT [id number](01/13) SELENA B-D PEN NDL SHRT [id number](01/13) SELENA, See Instructions, # 100 each, 0 Refills, DIRECTED WITH SOLOSTAR PEN EVERY DAY, 184.25, cm, 02/06/21 10:11:00 EDT, Height Start Date: 10/17/21 Status: Ordered Quantity: 100.0 Unit: each Repeat number: 1 B-D PEN NDL SHRT [id number](01/13) SELENA B-D PEN NDL SHRT [id number](01/13) SELENA, See Instructions, # 100 each, 0 Refills, Maintenance, USE WITH LANTUS EVERY DAY, 10/04/24 11:00:00 AM EST, 184.25, cm, 10/03/24 15:33:00 EST, Height Start Date: 10/04/24 Status: Ordered Quantity: 100.0 Unit: each Repeat number: 1 B-D PEN NDL SHRT [id number](01/13) SELENA B-D PEN NDL SHRT [id number](01/13) SELENA, See Instructions, # 100 each, 3 Refills, Maintenance, DIRECTED WITH SOLOSTAR PEN EVERY DAY, 08/29/22 1:47:00 PM EST, 184.25, cm, 08/11/22 15:58:00 EST, Height Start Date: 08/29/22 Status: Ordered Quantity: 100.0 Unit: each Repeat number: 1 fluticasone 50 mcg/inh nasal spray 1 sprays, Nares, Both, 2 times a day, # 1 each, 11 Refills, Maintenance, 07/07/23 10:35:00 AM EST, [id number], Partial fill upon patient request if the [...] 5 Refills, Maintenance, 05/11/24 3:02:00 PM EDT, [facility][id number], 184.25, cm, 05/05/24 15:28:00 EDT, Height Start Date: 05/11/24 Status: Ordered Quantity: 90.0 Unit: tablet Repeat number: 1 levothyroxine 150 mcg (0.15 mg) oral tablet 1 tablet, By Mouth, Daily, # 30 tablet, 5 Refills, Maintenance, 06/01/24 11:29:00 AM EDT, [facility] #[id number], 184.25, cm, 05/05/24 15:28:00 EDT, Height Start Date: 06/01/24 Status: Ordered Quantity: 30.0 Unit: tablet Repeat number: 6 meloxicam 15 mg oral tablet 1 tablet, By Mouth, Daily, # 30 tablet, 5 Refills, Maintenance, 05/16/24 11:47:00 AM EDT, [facility] #[id number], 184.25, cm, 05/05/24 15:28:00 EDT, Height Start Date: 05/16/24 Status: Ordered Quantity: 30.0 Unit: tablet Repeat number: 6 MetFORMIN (Eqv-Glucophage XR) 500 mg oral tablet, extended release 3 tablet, By Mouth, Daily, # 90 tablet, 5 Refills, Maintenance, 08/15/24 10:27:00 AM EST, [facility][id number], 184.25, cm, 05/05/24 15:28:00 EDT, Height Start [...] 200.0 Unit: each Repeat number: 6 Pen [place], 31 G x 8 mm BD Ultra [...] 1 Refills, Maintenance, 07/18/24 9:04:00 AM EST, [facility] #[id number], 184.25, cm, 05/05/24 15:28:00 EDT, Height Start Date: 07/18/24 Status: Ordered Quantity: 90.0 Unit: tablet Repeat number: 2 Semglee (Prefilled Pen) 100 units/mL subcutaneous solution See Instructions, INJECT 20UNITS UNDER THE SKIN EVERY NIGHT AT BEDTIME TITRATE BY 2 UNITS EVERY 5 DAYS UP TO 60 UNITS EVERY DAY, # 15 mL, 5 Refills, Maintenance, 01/27/24 10:43:00 AM EDT, [facility] #[id number], 184.25, cm, 09/01/23 16:02:00 EST, Height Start Date: 01/27/24 Status: Ordered Quantity: 15.0 Unit: mL Repeat number: 1 sertraline 100 mg oral tablet 1 tablet = 100 mg, By Mouth, Daily, dose increase, # 30 tablet, 11 Refills, Maintenance, 10/03/24 3:42:00 PM EST, [place]t, [facility] #[id number], Partial fill upon patient request if the [...] Team Personnel Name: Micky Rose MD Position: [facility] Physician - Primary Care Member Role: PCP Address: [address] [place] [address] Telecom: Care Team Related Persons Name: SHAKILA JORDAN Insurance Providers Guarantor name: MIKE JORDAN Health Plan Information #: 1 Payer: BLUE [employer]EFIT [employer] PPO Member Number: NA Policy Number: NA Group Number: NA
--- OUTSIDE RECORDS SUMMARY | 2024-11-08 18:05 | XMS_ITS | Encounter Summary ---
Author Organization [facility] Address [address] [place] [address] Care Team Providers Care Shirring Machine Operator Automatic Name Role Phone Micky Rose MD Primary Care Provider [phone] Encounter Details Date Type Department Care Team (Late Contact Info) Description 11/08/2024 Telephone Gastroenterology - [address] [facility] [address] [place] [phone] Ray Agosto MD [address] [address] Social History Tobacco Use Types Packs/Day Years [...] as of this encounter Progress Notes * Adele Lees - 11/08/2024 3:24 PM EDT Pt calling to reschedule procedure on 12/23, pt will be having shoulder surgery that day, please reschedule documented in this encounter Plan of Treatment Upcoming Encounters Date Type Department Care Team (Late Contact Info) Description 12/23/2024 7:30 AM EDT Appointment [facility] Endoscopy [address] [place] [phone] Ray Agosto MD [address] [address] documented as of this encounter Visit Diagnoses Not on filedocumented in this encounter Care Teams Shirring Machine Operator Automatic Relationship Specialty Start Date End Date Micky Rose MD [address] [place] [address] PCP - General Internal Medicine 08/29/24 documented as of this encounter
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
== END 2024-11-08 15:14 | disposition home or self-care (01) ==
LOC: HO.HOS 14:45
PROVIDERS: PCP Internal Medicine; Visit Provider Orthopaedic Surgery
DX: M75.41 Impingement syndrome of right shoulder (principal); M19.011 Primary osteoarthritis, right shoulder
CPT/HCPCS: 99213

== ENCOUNTER 2024-12-23 07:57 | Day surgery (SDC) | payer OTHER, SELFPAY ==
--- OUTSIDE RECORDS SUMMARY | 2024-11-09 08:49 | XMS_ITS | Encounter Summary ---
Author Organization [facility] Address [address] [place] [address] Care Team Providers Care Center Manager Name Role Phone Micky Rose MD Primary Care Provider [phone] Reason for Visit * Imaging (Routine) - Pending Review Specialty Diagnoses / Procedures Referred By Keshia ley Referred To Contact Radiology Diagnoses BRONSON (nonalcoholic steatohepatitis) Procedures US Abdomen Limited US Abdomen Complete Ray Agosto MD [address] [address] Phone: tel: fax: [address] [address] Phone: tel: Referral ID Status Reason Start Date Expiration Date V isits Requested Visits Authorized [id number] Pending Review 10/25/2024 10/25/2025 1 1 Encounter Details Date Type Department Care Team (Latest Contact Info) Description 11/02/2024 6:42 AM EST - 11/02/2024 11:59 PM EST Hospital Encounter [facility] Ultrasound [address] [place] [address] BRONSON (nonalcoholic steatohepatitis) Discharge Disposition: [...] Info) Description 12/23/2024 7:30 AM EDT Appointment [facility] Endoscopy [address] [place] [phone] Ray Agosto MD [address] [address] documented as of this encounter Procedures Procedure [...] Signed Date: 11/07/2024 09:33 ET Workstation ID: [id number] Transcribed By: Self Edit Transcribed Date: 11/07/2024 [...] Dictated Date: 11/07/2024 09:28 ET Assigned Physician: Tommei Pardo Reviewed and Electronically Signed By: Tommie Pardo Signed Date: 11/07/2024 09:33 ET Workstation ID: [id number] Transcribed By: Self Edit Transcribed Date: 11/07/2024 09:28 ET us Ray Agosto MD IMG US PROCEDURES Final Resul t documented in this encounter Visit Diagnoses Diagnosis BRONSON (nonalcoholic steatohepatitis) Other chronic nonalcoholic liver disease documented in this encounter Care Teams Center Manager Relationship Specialty Start Date End Date Micky Rose MD [address] [place] [address] PCP - General Internal Medicine 08/29/24 documented as of this encounter
--- OUTSIDE RECORDS SUMMARY | 2024-11-09 08:49 | XMS_ITS | Clinical Summary ---
Author Organization [facility] 299 [facility] Address [address] [place] [address] Phone Care Team Providers Care Afternoon Babysitter Name Role Phone Micky Rose MD Primary Care Provider [phone] Allergies No known active allergies Medications sertraline [...] surveillance colonoscopy. 1. Plan for colonoscopy at [facility] in the AM. Will use GoLytely [...] Team Description 11/08/2024 Telephone Gastroenterology - [address] [phone] Ray Agosto MD 11/07/2024 Telephone Gastroenterology - [address] [phone] Arielle Last [place] Results 11/02/2024 6:42 AM EST - 11/02/2024 11:59 PM EST Hospital Encounter [facility] Ultrasound [address] [place] [phone] BRONSON (nonalcoholic steatohepatitis) Discharge Disposition: Home or Self Care 10/25/2024 2:30 PM EST Office Visit Gastroenterology - [address] [phone] Ray Aogsto MD Adenomatous polyp of colon, unspecified part of colon (Primary Dx); BRONSON (nonalcoholic steatohepatitis); Change in bowel habits from Last 3 Months Surgical History Surgery Date Site/Laterality Comments LIVER BIOPSY PERCUTANEOUS ([id number]) 11/29/2017 - 12/28/2017 steatohepatitis COLONOSCOPY W/ POLYPECTOMY [...] Info) Description 12/23/2024 7:30 AM EDT Appointment [facility] Endoscopy [address] [place] [phone] Ray Agosto MD [address] [address] Health Maintenance Due Date Last Done Comments [...] Signed Date: 11/07/2024 09:33 ET Workstation ID: [id number] Transcribed By: Self Edit Transcribed Date: 11/07/2024 [...] Signed Date: 11/07/2024 09:33 ET Workstation ID: [id number] Transcribed By: Self Edit Transcribed Date: 11/07/2024 09:28 ET us Ray Agosto MD IMG US PROCEDURES Final Resul t * External Colonoscopy Report (10/22/2017 3:11 PM EST) Anatomical Region Laterality Modality Endoscopy Historical Provider GI~PROCEDURE ORDERABLES F inal Result from Last 3 Months or Most Recently Relevant to Health Maintenance Insurance [employer]ATORS [place] [address] Care Teams Afternoon Babysitter Relationship Specialty Start Date End Date Micky Rose MD [address] [place] [phone] PCP - General Internal Medicine 08/29/24
--- OUTSIDE RECORDS SUMMARY | 2024-11-09 08:49 | XMS_ITS | Encounter Summary ---
Author Organization [facility] Address [address] [place] [address] Care Team Providers Care Laminated Plastics Assembler And Gluer Name Role Phone Micky Rose MD Primary Care Provider [phone] Encounter Details Date Type Department Care Team (Late Contact Info) Description 11/08/2024 Telephone Gastroenterology - [address] [facility] [address] [place] [phone] Ray Agosto MD [address] [address] Social History Tobacco Use Types Packs/Day Years [...] Description 12/23/2024 7:30 AM EDT Appointment [facility] Endoscopy [address] [place] [phone] Ray Agosto MD [address] [address] documented as of this encounter Visit Diagnoses Not on filedocumented in this encounter Care Teams Laminated Plastics Assembler And Gluer Relationship Specialty Start Date End Date Micky Rose MD [address] [place] [address] PCP - General Internal Medicine 08/29/24 documented as of this encounter
--- OUTSIDE RECORDS SUMMARY | 2024-11-09 08:49 | XMS_ITS | Encounter Summary ---
Author Organization [facility] Address [address] [place] [address] Care Team Providers Care Behavioral Pediatrician Name Role Phone Micky Rose MD Primary Care Provider [phone] Reason for Visit * Reason Onset Date Comments Results 11/07/2024 Encounter Details Date Type Department Care Team (Late Contact Info) Description 11/07/2024 Telephone Gastroenterology - [address] [phone] Arielle Last [place] Results Social History Tobacco [...] Info) Description 12/23/2024 7:30 AM EDT Appointment [facility] Endoscopy [address] [place] [phone] Ray Agosto MD [address] [address] documented as of this encounter Visit Diagnoses Not on filedocumented in this encounter Care Teams Behavioral Pediatrician Relationship Specialty Start Date End Date Micky Rose MD [address] [place] [address] PCP - General Internal Medicine 08/29/24 documented as of this encounter
--- OUTSIDE RECORDS SUMMARY | 2024-11-09 08:49 | XMS_ITS | Encounter Summary ---
Author Organization [facility] Address [address] [place] [address] Care Team Providers Care Home Mission Worker Name Role Phone Micky Rose MD Primary Care Provider [phone] Encounter Details Date Type Department Care Team (Late st Contact Info) Description 10/25/2024 2:30 PM EST Office Visit Gastroenterology - [address] [place] [address] Ray Agosto MD [address] [facility] [address] [place] [address] Adenomatous polyp of colon, unspecified part of [...] surveillance colonoscopy. 1. Plan for colonoscopy at [facility] in the AM. Will use GoLytely prep. [...] 10/2017 q 5 years LIVER BIOPSY PERCUTANEOUS ([id number]) 11/2017 steatohepatitis SOCIAL HISTORY: Social History Socioeconomic [...] color, texture, turgor normal. LABS: Reviewed in [facility] IMAGING: No results found. Assessment & Plan Adenomatous polyp of colon, unspecified part of colon 59-year-old gentleman with history of adenomatous polyps presenting for follow- up. Current symptomsinclude change in bowel pattern. He denies again he is aware that he is overdue for his surveillance colonoscopy. 1. Plan for colonoscopy at [facility] in the AM. Will use GoLytely prep. [...] panel US ABDOMEN COMPLETE Board Certified Gastroenterology [facility] Medical [facility] W [phone] [address] [email or web address] Ray Agosto MD 2:56 PM EST documented in this encounter Plan of Treatment Upcoming Encounters Date Type Department Care Team (Late st Contact Info) Description 12/23/2024 7:30 AM EDT Appointment [facility] Endoscopy [address] [place] [address] Ray Agosto MD [address] [address] Scheduled Orders Name Type Priority Associated Diagnoses [...] 10/10/2024 added in this encounter Care Teams Home Mission Worker Relationship Specialty Start Date End Date Micky Rose MD [address] [place] [address] PCP - General Internal Medicine 08/29/24 documented as of this encounter
[2024-12-20 15:32] VITALS: BMI 30.9
--- NOTE | 2024-12-22 09:31 | HO.ANESPROP2 ---
Documented by User: Kanchan Clemons NP 12/22/24 09:33 HPI - Anesthesia Eval Consult details Narrative: 59yo M for Right Shoulder Arthroscopy,distal clavicle excsion,acromioplast,capsular release,manipulation Medically optimized per [facility] preop clinic PMFSH Active Problems Active Problems: All Active Problems Impingement syndrome of right shoulder (Acute) Rotator cuff insufficiency of right shoulder (Acute) Right shoulder pain (Acute) Past Medical History Medical History Sleep apnea Depression Diabetes Elevated cholesterol Hypothyroid Surgical History Surgical History Hx of hand surgery History of open reduction and internal fixation (ORIF) procedure Hx of fusion of cervical spine Hx of shoulder surgery Hx of arthroscopic knee surgery Social History Social History Patient Tobacco Use Status: Current everyday Tobacco user Tobacco use type: Cigarette Cigarette Packs Per Day: 1 Cigarettes Per Day: 20.0 Use of substances other than those prescribed or required for medical reasons: No Are you DNR?: No Advance Directives: No Advance Directives Information Provided: Yes Poor oral hygiene: No Meds Allergies Allergy/AdvReac Type Severity Reaction Status Date / Time No Known Allergies Allergy Verified 11/08/24 14:47 Active Medications: Current Medications Cefazolin Sodium/Dextrose (Ancef) 2 gm in 50 mls @ 100 mls/hr IV PREOP ONE Stop: 12/23/24 06:19 Home Medications ?Medication ?Instructions ?Recorded ?Confirmed ?Last Taken ?Type gabapentin 600 mg tablet 600 mg PO TID 08/22/24 12/20/24 12/23/24 History insulin glargine-yfgn 100 unit/mL 10 unit subcut BEDTIME 08/22/24 12/20/24 Unknown History (3 mL) subcutaneous pen (Semglee (insulin glargine-yfgn) Pen) levothyroxine 150 mcg tablet 150 mcg PO DAILY 08/22/24 12/20/24 12/23/24 History meloxicam 15 mg tablet 15 mg PO DAILY 08/22/24 12/20/24 Unknown History metformin 500 mg tablet,extended 500 mg PO TID 08/22/24 12/20/24 Unknown History release 24 hr rosuvastatin 10 mg tablet 10 mg PO DAILY 08/22/24 12/20/24 Unknown History sertraline 100 mg tablet 100 mg PO DAILY 12/20/24 12/20/24 Unknown History Exam Height,Weight and Vital Signs: Height 6 ft 0.54 in Weight 105 kg Pertinent Lab Results Pertinent Lab Results: Lab Results Test Name Test Result Date/Time WBC10.0 k/mm312/06/2024 15:43 EDT RBC4.46 m/mm312/06/2024 15:43 EDT Hgb14.3 Gm/dL12/06/2024 15:43 EDT Hct39.8 %12/06/2024 15:43 EDT MCV89.2 kcloxdxoccd50/08/2025 15:43 EDT MCH32.1 pg12/06/2024 15:43 EDT MCHC35.9 Gm/dL12/06/2024 15:43 EDT Platelet Fkxcd173 k/mm312/06/2024 15:43 EDT RDW-SD43.7 dcwrefglcdm43/08/2025 15:43 EDT MPV10.3 zoyvwusaqnn62/08/2025 15:43 EDT Nucleated RBC (Automated)0.0 #/100 WBC'S012/06/2024 15:43 EDT Abs. NRBC0.0 k/mm312/06/2024 15:43 EDT Abs. Neut7.0 k/mm312/06/2024 15:43 EDT Abs. Lymph1.6 k/mm312/06/2024 15:43 EDT Abs. Mono0.9 k/mm312/06/2024 15:43 EDT Abs. Eo0.4 k/mm312/06/2024 15:43 EDT Abs. Baso0.1 k/mm312/06/2024 15:43 EDT Neut %70.2 %12/06/2024 15:43 EDT Lymph %16.2 %12/06/2024 15:43 EDT Wythe %8.9 %12/06/2024 15:43 EDT Eos %3.5 %12/06/2024 15:43 EDT Baso %1.0 %12/06/2024 15:43 EDT Imm Gran0.2 %12/06/2024 15:43 EDT Abs. Imm Gran0.0 k/mm312/06/2024 15:43 EDT Mlhait511 mmol/L12/06/2024 15:43 EDT Potassium4.3 mmol/L12/06/2024 15:43 EDT Gbakolfy221 mmol/L12/06/2024 15:43 EDT Bicarbonate Level23 mmol/L12/06/2024 15:43 EDT Anion Gap13 mmol/L12/06/2024 15:43 EDT Glucose Exepj410 mg/dL12/06/2024 15:43 EDT Hemoglobin A1C (Monitoring)6.8 %09/12/2024 17:01 EST BUN18 mg/dL12/06/2024 15:43 EDT Creatinine-Blood0.80 mg/dL12/06/2024 15:43 EDT Estimated GFR Ckwwpbuzan686 ML/MIN/1.73 M212/06/2024 15:43 EDT Calcium9.5 mg/dL12/06/2024 15:43 EDT Narrative Narrative: EKG 11/2024 Ventricular Rate: 64 ?BPM Atrial Rate: 64 ?BPM P-R Interval: 158 ?ms QRS Duration: 94 ?ms Q-T Interval: 384 ?ms QTC Calculation(Bazett): 396 ?ms P Aurora: 24 ?degrees R Aurora: 86 ?degrees T Aurora: 47 ?degrees Normal sinus rhythm Normal ECG No previous ECGs available Confirmed by Roman Rosenthal ([id number]) on 12/06/2024 4:09:48 PM?[1] Assessment and Plan Assessment Anesthesia Assessment: Chart Reviewed Documented by User: Elen Cuevas MD 12/23/24 08:15 PMFSH Past Medical History Medical History Sleep apnea Depression Diabetes Elevated cholesterol Hypothyroid Family History Family history of problems with anesthesia: No Surgical History Surgical History Hx of hand surgery History of open reduction and internal fixation (ORIF) procedure Hx of fusion of cervical spine Hx of shoulder surgery Hx of arthroscopic knee surgery History of Problems with Anesthesia: No Social History Social History Patient Tobacco Use Status: Current everyday Tobacco user Tobacco use type: Cigarette Cigarette Packs Per Day: 1 Cigarettes Per Day: 20.0 Use of substances other than those prescribed or required for medical reasons: No Are you DNR?: No Advance Directives: No Advance Directives Information Provided: Yes Poor oral hygiene: No Meds Allergies Allergy/AdvReac Type Severity Reaction Status Date / Time No Known Allergies Allergy Verified 11/08/24 14:47 Home Medications ?Medication ?Instructions ?Recorded ?Confirmed ?Last Taken ?Type gabapentin 600 mg tablet 600 mg PO TID 08/22/24 12/20/24 12/23/24 History insulin glargine-yfgn 100 unit/mL 10 unit subcut BEDTIME 08/22/24 12/20/24 Unknown History (3 mL) subcutaneous pen (Semglee (insulin glargine-yfgn) Pen) levothyroxine 150 mcg tablet 150 mcg PO DAILY 08/22/24 12/20/24 12/23/24 History meloxicam 15 mg tablet 15 mg PO DAILY 08/22/24 12/20/24 Unknown History metformin 500 mg tablet,extended 500 mg PO TID 08/22/24 12/20/24 Unknown History release 24 hr rosuvastatin 10 mg tablet 10 mg PO DAILY 08/22/24 12/20/24 Unknown History sertraline 100 mg tablet 100 mg PO DAILY 12/20/24 12/20/24 Unknown History Exam Airway Mallampati Class: II TM Dist: >3cm Neck ROM: Full Heart: rrr Lungs: cta Assessment and Plan Assessment Anesthesia Assessment: Anesthesia Plan Discussed Final Anesthetic Review Family History of Problems with Anesthesia: No History of Problems with Anesthesia: No NPO: Yes ASA Class: III Final Preanesthetic Review: No Changes in Pt Med Stat, Meds/Allgs Chart Reviewed, Consent Obtained/Reviewed and Anes Risks/Benef Reviewed Patient Risk: Intermediate Procedure Risk: Intermediate Anesthetic Plan Anesthetic Plan: GA, Regional Block and Agree w/ Assess. and Plan Disposition: Standard PACU
[2024-12-23 08:08] VITALS: BMI 26.1
[2024-12-23 08:23] VITALS: BP 128/71; PULSE 56; RESP 16; TEMP 35.9; O2SAT 97
[2024-12-23 08:31] LABS: Glucose, Whole Blood 179 mg/dL (60-115)
[2024-12-23] MEDS: Lactated Ringers 1,000 ML 100 ML IVCONT (08:43)
[2024-12-23] MEDS: ceFAZolin Sodium/Dextrose,Iso 2 GM/50 ML PIGGYBACK IV (10:35)
[2024-12-23] MEDS: Acetaminophen 1,000 MG/100 ML PIGGYBACK 400 MG IV (10:45)
[2024-12-23 11:55] VITALS: BP 147/76; PULSE 72; RESP 16; TEMP 36.1; O2SAT 98
[2024-12-23 12:00] VITALS: BP 134/75; PULSE 56; RESP 16; O2SAT 96
[2024-12-23 12:02] LABS: Glucose, Whole Blood 153 mg/dL (60-115)
[2024-12-23 12:05] VITALS: BP 139/69; PULSE 57; RESP 16; O2SAT 95
[2024-12-23 12:10] VITALS: BP 152/71; PULSE 57; RESP 16; O2SAT 95
--- NOTE | 2024-12-23 12:13 | PM.OP ---
Brief Operative Note Date of Service: 12/23/24 Pre-op diagnosis: Right shoulder impingement syndrome, right shoulder acromioclavicular joint arthritis, right shoulder adhesive capsulitis Post-op diagnosis: same Procedure: Right shoulder diagnostic arthroscopy with right shoulder arthroscopic distal clavicle excision, right shoulder arthroscopic acromioplasty, right shoulder arthroscopic anterior capsular release, right shoulder manipulation under anesthesia Implants: None Surgeon: Deandre Cordoba MD Anesthesia: GETA and regional Was an Dental Secretary used for this Procedure?: No Estimated blood loss (mL): 10 Pathology: none sent Condition: stable Disposition: PACU
--- NOTE | 2024-12-23 12:14 | P.OP_ITS ---
Operative Note Operative Note Date of Service: 12/23/24 Narrative: After the patient was identified as Marcos Aldana and his right shoulder was initialed by myself the patient was brought to the holding area where a right shoulder interscalene regional block was performed by the anesthesiologist in routine fashion. The patient was then brought to the operating room where general anesthesia was induced by the anesthesiologist in routine fashion. The patient was given 2 g of IV Ancef preoperatively for infection prophylaxis. Examination under anesthesia of the patient's right shoulder showed decreased passive range of motion when compared to the left shoulder. The patient's right shoulder had passive forward flexion to 130 degrees compared to 170 degrees, external rotation to 30 degrees compared to 60 degrees, and internal rotation to 50 degrees compared to 60 degrees. The patient was gently positioned in the beach chair position with all bony prominences well padded. The patient's right shoulder region and upper extremity were prepped and draped in sterile fashion. A formal time-out was completed. A #11 scalpel blade was used to make a posterior portal 2 cm inferior and 1 cm medial to the posterolateral corner of the acromion. Blunt trocar technique was used to enter the glenohumeral joint in routine fashion. An anterior portal was made just lateral to the coracoid process after proper positioning was confirmed using a spinal needle. Diagnostic arthroscopy showed minimal degenerative changes of the glenoid and humeral head articular surfaces. There was no evidence of rotator cuff tearing. There was no evidence of injury to the biceps tendon or its insertion onto the glenoid. There was inflammation of the anterior joint capsule consistent with adhesive capsulitis. The ArthroCare Wand was then used to perform an anterior capsular release between the inferior border of the biceps tendon and the superior border of the subscapularis tendon. The arthroscope was then placed from the posterior portal into the subacromial space. A lateral portal was made 2 fingerbreadths lateral to the anterior lateral corner of the acromion. The ArthroCare Wand was used to ablate soft tissues along the undersurface of the acromion as well as to excise the coracoacromial ligament. There was a sharp spur along the undersurface of the acromion which was removed using the hooded bur. The arthroscope was then placed into the lateral portal and the acromiopla sty was completed with the bur in the posterior portal using the posterior aspect of the acromion as a cutting block. The ArthroCare Wand was then brought in through the anterior portal and was used to ablate soft tissues along the acromioclavicular joint and distal clavicle. The posterior and superior ligamentous structures were left intact. A distal clavicle excision of 8 mm was performed using the fluted bur. Any remaining bursal tissue was removed using the arthroscopic shaver. The subacromial space was irrigated and then drained. All arthroscopic instruments were removed. A gentle manipulation under anesthesia was then performed. Full passive range of motion was easily attained. The 3 portals were closed with 3-0 nylon interrupted suture. The subacromial space was injected with Marcaine. Dry sterile dressing was placed over all incisions. The patient's right upper extremity was placed into a sling. The patient was awoken and extubated in the operating room. The patient was transferred to the recovery room in stable condition.
[2024-12-23] MEDS: cefTRIAXone sodium 1 GM VIAL IVPUSH (12:16)
[2024-12-23 12:25] VITALS: BP 151/67; PULSE 58; RESP 20; TEMP 36.1; O2SAT 95
== END 2024-12-23 13:00 | disposition home or self-care (01) ==
PROVIDERS: PCP Internal Medicine; Visit Provider Orthopaedic Surgery
PROC: (CPT 29805; principal; 2024-12-23 10:00)
DX: M75.41 Impingement syndrome of right shoulder (principal); M75.01 Adhesive capsulitis of right shoulder; M19.011 Primary osteoarthritis, right shoulder; Z98.890 Other specified postprocedural states; M25.811 Other specified joint disorders, right shoulder; M25.511 Pain in right shoulder; M25.611 Stiffness of right shoulder, not elsewhere classified; E11.9 Type 2 diabetes mellitus without complications; E03.9 Hypothyroidism, unspecified; G47.33 Obstructive sleep apnea (adult) (pediatric); F32.A Depression, unspecified; Z79.4 Long term (current) use of insulin; Z79.84 Long term (current) use of oral hypoglycemic drugs; Z79.899 Other long term (current) drug therapy
CPT/HCPCS: 29824; 29825; 29826; 82947; J0131; J0171; J0665; J0690; J0696; J1100; J2003; J2250; J2405; J2704; J2795; J3010

== ENCOUNTER → 2024-12-23 07:57 | Outpatient (BNV) | payer OTHER, SELFPAY | PROVIDERS: PCP Internal Medicine; Visit Provider Orthopaedic Surgery | DX: M75.41 Impingement syndrome of right shoulder (principal); M19.011 Primary osteoarthritis, right shoulder; M75.01 Adhesive capsulitis of right shoulder | CPT/HCPCS: 29824; 29826 ==

== ENCOUNTER 2025-01-05 14:40 | Outpatient (AMB) | payer OTHER, SELFPAY ==
--- NOTE | 2025-01-05 14:52 | A.OFFVIS_ITS ---
Intake Visit Reasons: PO-Rt Shld 12/23/24 Allergies No Known Allergies Allergy (Verified 01/05/25 14:53) HPI HPI PO-Rt Shld 12/23/24 DR: Details: 59-year-old gentleman who returns to the office today status post right shoulder arthroscopy with Dr. Cordoba on 12/23/2024. Patient is doing well today. He has no concerns today. [facility] Medical History Sleep apnea Depression Diabetes Elevated cholesterol Hypothyroid Surgical History (Updated 12/23/24 @ 08:16 by Cecily Huff RN) H/O: vasectomy Hx of hand surgery History of open reduction and internal fixation (ORIF) procedure Hx of fusion of cervical spine Hx of shoulder surgery Hx of arthroscopic knee surgery Social History Comment: counts correct Patient Tobacco Use Status: Current everyday Tobacco user Tobacco use type: Cigarette Cigarette Packs Per Day: 1 Cigarettes Per Day: 20.0 Review of Systems Const All systems reviewed & are unremarkable except as noted in HPI and below Physical Exam Extrem Other: Right shoulder incision clean dry and intact. No erythema or drainage. N eurovascularly intact. Results Reviewed Results Reviewed: Brief Operative Note Date of Service: 12/23/24 Pre-op diagnosis: Right shoulder impingement syndrome, right shoulder acromioclavicular joint arthritis, right shoulder adhesive capsulitis Post-op diagnosis: same Procedure: Right shoulder diagnostic arthroscopy with right shoulder arthroscopic distal clavicle excision, right shoulder arthroscopic acromioplasty, right shoulder arthroscopic anterior capsular release, right shoulder manipulation under a nesthesia Implants: None Surgeon: Deandre Cordoba MD Assessment & Plan Assessment & Plan (1) Impingement syndrome of right shoulder: Code(s): M75.41 - Impingement syndrome of right shoulder Category: Medical Plan Sutures removed today Steri-Strips applied. 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 I stressed the importance of caution with repetitive motion and lifting overhead as he wants to avoid re-injuring or irritating the surgical site which would delay or inhibit his recovery. I explained the next 4-6 weeks he should use caution in these activities. Patient did express understanding. An order for physical therapy was placed to work on range of motion/rotator cuff and periscapular stabilization. We will see Dr. Cordoba back in 4 weeks sooner if needed. Orders: Orders PT Evaluation and Treatment Today M75.41 - Impingement syndrome of right shoulder Coding Level of Care Code Global (26822) Diagnoses Impingement syndrome of right shoulder M75.41
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
--- OUTSIDE RECORDS SUMMARY | 2025-01-05 15:24 | XMS_ITS | Data Portability ---
Author Organization [place] [facility] [place] Address [address] [place] [phone] Care Team Providers Care Pediatrician/Medical Doctor Name Role Phone MARY MEYERS Referring Provider [...] progress to a targeted home exercise program. Bcyx-rqg-inhqduz anti-inflammatory medications with appropriate GI precautions or [...] examination, recommended tests/diagnostic imaging, and treatment plan. [email or web address] Not available 03/07/2024 16:38:20 04/13/2024 04/13/2024 Marcos [...] have not improved, sooner for any complications. [email or web address] Not available 04/13/2024 16:06:12 Plan of Treatment Reminders Order Date Submit Date Provider Last Modified By Organization Details Last Modified Time Details Appointments None recorded. Lab None recorded. Referral None recorded. Procedures None recorded. Surgeries None recorded. Imaging XR, shoulder, 2 or more view 2023 [facility]24 [email or web address], [address], [place], [address], 4 09:38:06 XR, knee, 4 or more view 2023 024 [email or web address] 9 [facility], [address], [place], [address], 4 06:47:30 Medication Orders lidocaine (PF) 100 mg/5 mL (2 %) injection syringe 2023 024 [place] [address] [facility]00778, [address], [place], [place], [id number], 4 16:09:04 triamcinolo ne acetonide 40 mg/mL suspension for injection 2023 024 [email or web address] 21 [facility] #[id number], [address], [place], [place], [id number], 4 16:09:04 lidocaine (PF) 100 mg/5 mL (2 %) injection syringe 2023 024 Not available 4 16:01:41 triamcinolo ne acetonide 40 mg/mL suspension for injection 2023 024 Not available 16:01:41 Patient TargetsNo targets recorded. Patient Instructions Encounter Date Encounter Id Patient Instructions Last Modified By Organization Details Last Modified Time 03/07/2024 [id number] Radiographs: 4 views of {{the Left the Right* Both}} knee(s) were obtained in the {{[facility]* Dinesh} } office on {{ 03/07/2024#}} including [...] KANU [email or web address] Not available 03/07/2024 16:37:29 04/13/2024 [id number] Radiographs: 4 Views of the {{Right* Left Bila teral}} shoulder were obtained in the {{[facility]* Dinesh} } office on {{ 04/13/2024#}} including [...] of fracture}}. Interpretation by: Anselmo Aguirre PA-C [email or web address] Not available 04/13/2024 16:10:27 Reason for Referral None Reported. Problems Name Problem SNOMED Code Status Onset Date Resolution Date Notes Provider Name and Address Organization Details Recorded Time Osteoarthri tis of right knee joint 2886551616513 00 Active [address], [place], [address], [place] [facility], P 4 16:35:48 Impingement syndrome of right shoulder region 3912720828117 02 Active [address], [place], [address], [place] [facility], [facility] 4 16:08:18 Arthritis of right glenohumera l joint 1876831361364 109 Active 2023 ANSELMO AGUIRRE PA-C [address], [place], [address], [place] [facility], [facility] 4 16:08:43 Problem Notes None recorded. Procedures Surgical History Date Name Laterality Status Provider Name and Address Organization Details Recorded Time 4 GLENYS Subacromial Shoulder Inj completed [address], [place], [address], [place] [facility], P 04/13/2024 16:04:22 4 GLENYS Knee Injection completed ANSELMO AGUIRRE PA-C [address], [place], [address], [place] [facility], P 03/07/2024 16:34:45 Knee Surgery completed [facility] - [facility], P 03/07/2024 16:09:06 fusion completed [facility], P 03/07/2024 16:09:13 Imaging Results None recorded. [...] Updated DateTime 03/07/2024 190.5 cm 30 kg/m2 804313.17 g Adriana Brown [place] - [facility], 03/07/2024 16:07:42 Social History Question Answer Notes LastModified by Organizat ion Details LastModified Time Tobacco Smoking Status Former Smoker Adriana Brown [facility], [place] - [facility], 03/07/2024 16:07:54 What Is Your [...] SNOMED-CT Code Diagnosis ICD10 Code Diagnosis Note [id number] K[address] RA[address] [facility] [address] [place] [address] [address] [place] [address] 03/07/2024 15:29:35 03/07/2024 16:31:36 Pain of right knee joint [id number] 38207 M25.561 Additional diagnosis detail: Pain in joint of right knee Osteoarthr itis of right knee joint 8121758164 04646 M17.11 Additional diagnosis detail: Primary osteoarthr itis of right knee [id number] ANSELMO AGUIRRE PA-C [facility] [address] [place] [address] 04/13/2024 14:56:37 04/13/2024 16:03:26 Pain of right shoulder joint [id number] M25.511 Impingemen t syndrome of right shoulder region 7130571748 10078 M75.41 Arthritis of right glenohumeral joint 1185441076 276581 M19.011 Health Concerns Section Related Observation LastModified by Organization Detai ls LastModified Time None Recorded Concern Status LastModified by Organization Details LastModified Time None Recorded Advance Directives Directive None Recorded Payers Encounter Date Sequence Insurance Name Policy Number Policy Huff Covered Member ID Huff Member ID Guarantor Name 03/07/2024 1 [place] [id number] Marcos Aldana [id number] Marcos Aldana 04/13/2024 1 [place] [id number] Marcos Aldana [id number] Marcos Aldana Notes Date Note Type [...] pain as well. [address], [place], [address], [place] [facility], 03/07/2024 16:40:30 04/13/2024 text/html Marcos is a 59-year-old male who presents today with right shoulder pain. Symptoms started 40 years ago. He had arthroscopy 20 years ago. 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 He is tolerated his symptoms over the years. Unfortunately, his symptoms were exacerbated a few months ago. He was looking away from his dog who suddenly ran and jerked his shoulder. He had increased pain which he was hoping would improve. Symptoms have persisted. He presents today for orthopedic consultation. No neck pain. No numbness or tingling. [address], [place], [address], [place] [facility], [facility] 04/13/2024 16:11:11
--- OUTSIDE RECORDS SUMMARY | 2025-01-05 15:24 | XMS_ITS | Continuity of Care Document ---
Author Organization [facility] Address [address] [place] [address]- Care Team Providers Care Xm1 Tank Driver Name Role Phone Micky Rose MD Primary Care Physician Encounter [facility] Date(s): 12/01/24 - 12/31/24 [facility] [address] [place] [address]- Encounter Type: Triage Allergies, Adverse Reactions, Alerts No Known Allergies Immunizations Given and Recorded Vaccine Date Status Refusal Reason tetanus-diphtheria toxoids (Td) 08/14/23 Recorded influenza virus vaccine, inactivated 08/09/22 Chivo rded influenza virus vaccine, inactivated 09/10/21 Chiov rded influenza virus vaccine, inactivated 1 06/23/18 Gi lisa influenza virus vaccine, inactivated 10/08/15 Give n influenza virus vaccine, inactivated 05/19/14 Give n influenza virus vaccine, inactivated 2 06/30/13 Gi lisa influenza virus vaccine, inactivated 05/15/13 Chivo rded [id number] 12y+ bivalent booster vax 08/09/22 Recorded SARS-CoV-2 [...] acel(Tdap) 7 07/10/10 Given 1Result Comment: [06/23/2018] [facility] [id number] 2Result Comment: [11/11/2013] per pt history 3Result Comment: [facility] [address] 4Result Comment: [facility] 5Admin Note: [facility] 6Admin Note: [facility] 7Admin Note: [facility] Medications azelastine 137 mcg/inh (0.1%) nasal spray 1 sprays, Nares, Both, 2 times a day, PRN Other Allergies, # 1 each, 5 Refills, Maintenance, 05/26/23 3:53:00 PM EDT, [place], [facility] #[id number], Partial fill upon patient request if the prescription is for a schedule II opioid drug., 1 sprays Nares, Both 2 times a day,x30 days,PRN:Other Allergies, 184.25, cm, 05/26/23 15:43:00 EDT, Height Start Date: 05/26/23 Stop Date: 11/22/23 Status: Ordered Quantity: 1.0 Unit: each Repeat number: 6 B-D PEN NDL SHRT [id number](01/13) SELENA B-D PEN NDL SHRT [id number](01/13) SELENA, See Instructions, # 100 each, 0 Refills, DIRECTED WITH SOLOSTAR PEN EVERY DAY, 184.25, cm, 02/06/21 10:11:00 EDT, Height Start Date: 10/17/21 Status: Ordered Quantity: 100.0 Unit: each Repeat number: 1 B-D PEN NDL SHRT 17RL2KG(01/13) SELENA B-D PEN NDL SHRT 98HR6LC(01/13) SELENA, See Instructions, # 100 each, 0 Refills, Maintenance, USE WITH LANTUS EVERY DAY, 10/04/24 11:00:00 AM EST, 184.25, cm, 10/03/24 15:33:00 EST, Height Start Date: 10/04/24 Status: Ordered Quantity: 100.0 Unit: each Repeat number: 1 B-D PEN NDL SHRT [id number](01/13) SELENA B-D PEN NDL SHRT 32QL1FX(01/13) SELENA, See Instructions, # 100 each, 3 Refills, Maintenance, DIRECTED WITH SOLOSTAR PEN EVERY DAY, 08/29/22 1:47:00 PM EST, 184.25, cm, 08/11/22 15:58:00 EST, Height Start Date: 08/29/22 Status: Ordered Quantity: 100.0 Unit: each Repeat number: 1 fluticasone 50 mcg/inh nasal spray 1 sprays, Nares, Both, 2 times a day, # 1 each, 11 Refills, Maintenance, 07/07/23 10:35:00 AM EST, [facility][id number], Partial fill upon patient request if the [...] blood glucose once a day Dx: E11.9misc, 3/25/24 1:43:00 PM EDT, [facility], 184.25, cm, 09/01/23 [...] 5 Refills, Maintenance, 05/11/24 3:02:00 PM EDT, [facility] #[id number], 184.25, cm, 05/05/24 15:28:00 EDT, Height Start Date: 05/11/24 Status: Ordered Quantity: 90.0 Unit: tablet Repeat number: 1 Lantus Solostar Pen 100 units/mL subcutaneous solution = 20 units, Subcutaneous Injection, Daily, # 15 mL, 11 Refills, Maintenance, 11/04/24 3:41:00 PM EST,[facility] #[id number], Partial fill upon patient request if the prescription is for a schedule II opioid drug., 184.25, cm, 10/03/24 15:33:00 EST, Height Start Date: 11/04/24 Status: Ordered Quantity: 15.0 Unit: mL Repeat number: 12 levothyroxine 150 mcg (0.15 mg) oral tablet 1 tablet, By Mouth, Daily, # 30 tablet, 5 Refills, Maintenance, 11/23/24 2:59:00 PM EDT, [facility] #[id number], 184.25, cm, 10/03/24 15:33:00 EST, Height Start Date: 11/23/24 Status: Ordered Quantity: 30.0 Unit: tablet Repeat number: 6 meloxicam 15 mg oral tablet 1 tablet, By Mouth, Daily, # 30 tablet, 5 Refills, Maintenance, 11/15/24 4:19:00 PM EDT, [facility] #07343, 184.25, cm, 10/03/24 15:33:00 EST, Height Start Date: 11/15/24 Status: Ordered Quantity: 30.0 Unit: tablet Repeat number: 6 MetFORMIN (Eqv-Glucophage XR) 500 mg oral tablet, extended release 3 tablet, By Mouth, Daily, # 90 tablet, 5 Refills, Maintenance, 08/15/24 10:27:00 AM EST, [facility] #79283, 184.25, cm, 05/05/24 15:28:00 EDT, Height Start [...] 200.0 Unit: each Repeat number: 6 Pen [place], 31 G x 8 mm BD Ultra [...] 1 Refills, Maintenance, 12/23/24 11:16:00 AM EDT, [facility] #[id number], 184.25, cm, 12/06/24 15:23:00 EDT, Height Start Date: 12/23/24 Status: Ordered Quantity: 90.0 Unit: tablet Repeat number: 1 Semglee (Prefilled Pen) 100 units/mL subcutaneous solution See Instructions, INJECT 20UNITS UNDER THE SKIN EVERY NIGHT AT BEDTIME TITRATE BY 2 UNITS EVERY 5 DAYS UP TO 60 UNITS EVERY DAY, # 15 mL, 5 Refills, Maintenance, 01/27/24 10:43:00 AM EDT, [facility] #[id number], 184.25, cm, 09/01/23 16:02:00 EST, Height Start Date: 01/27/24 Status: Ordered Quantity: 15.0 Unit: mL Repeat number: 1 sertraline 100 mg oral tablet 1 tablet = 100 mg, By Mouth, Daily, dose increase, # 30 tablet, 11 Refills, Maintenance, 10/03/24 3:42:00 PM EST, [place], [facility] #[id number], Partial fill upon patient request if the [...] Response Smoking Status Current every day sm sevener entered on: 01/31/15 Sex Sex Representation Male (finding) Patient Care team information Care Team Personnel Name: Micky Rose MD Position: S Physician - Primary Care Member Role: PCP Address: [address] [place] [address]- Telecom: Care Team Related Persons Name: SHAKILA JORDAN Insurance Providers Guarantor name: MIKE NIKKI Health Plan Information #: 1 Payer: BLUE BENEFIT [employer] PPO Member Number: NA Policy Number: NA Group Number: NA
== END 2025-01-05 15:03 | disposition home or self-care (01) ==
LOC: HO.HOS 14:42
PROVIDERS: PCP Internal Medicine; Visit Provider Physician Assistant
DX: M75.41 Impingement syndrome of right shoulder (principal)
CPT/HCPCS: 99024

== ENCOUNTER → 2025-01-05 14:40 | Outpatient (BNVA) | payer OTHER, SELFPAY | PROVIDERS: PCP Internal Medicine; Visit Provider Physician Assistant ==

== ENCOUNTER 2025-02-09 15:12 | Outpatient (AMB) | payer OTHER, SELFPAY ==
--- NOTE | 2025-02-09 15:17 | MHC.OFFVIS ---
Vital Signs 02/09/25 15:18 Height 6 ft 3 in Weight 208 lb BMI 26.0 Intake Visit Reasons: Left shoulder pain and weakness, PO-Rt Shld 12/23/24 DR Intake Note: Marcos is a 60 year old male who presents with complaints of progressively worsening left shoulder pain and weakness. The patient did undergo right shoulder arthroscopic surgery on December 23 2024. He reports minimal discomfort in his right shoulder. He continues with his home stretching program. He describes his left shoulder pain as sharp in nature. He did injure his left shoulder while lifting a heavy object approximately 1 year ago. Since that time his symptoms have gotten progressively worse. He has failed the last 6 weeks of conservative treatment which has included physical therapy exercises, a home exercise program, Tylenol and anti-inflammatory medicines. He has had injections in the past which gave him minimal relief. Allergies No Known Allergies Allergy (Verified 02/09/25 15:18) Medication List - Last Reconciled 02/09/25 by Deandre Cordoba MD gabapentin 600 mg PO TID insulin glargine-yfgn (Semglee (insulin glargine-yfgn) Pen) 10 units subcut BEDTIME levothyroxine 150 mcg PO DAILY meloxicam 15 mg PO DAILY metformin ER 500 mg PO TID rosuvastatin 10 mg PO DAILY sertraline 100 mg PO DAILY PFSH Medical History (Updated 02/09/25 @ 15:33 by Deandre Cordoba MD) Sleep apnea Depression Diabetes Elevated cholesterol Hypothyroid Surgical History (Updated 12/23/24 @ 08:16 by Cecily Huff RN) H/O: vasectomy Hx of hand surgery History of open reduction and internal fixation (ORIF) procedure Hx of fusion of cervical spine Hx of shoulder surgery Hx of arthroscopic knee surgery Social History Comment: counts correct Patient Tobacco Use Status: Current everyday Tobacco user Tobacco use type: Cigarette Cigarette Packs Per Day: 1 Cigarettes Per Day: 20.0 Physical Exam Vital Signs: BMI result Body Mass Index 26.0 Const Other: Well-nourished well-developed very friendly male awake alert and oriented x3 in no acute distress Extrem Other: Bilateral upper extremity examination shows good capillary refill, no skin lesions noted, normal sensation light touch Right shoulder examination shows that the surgical incisions are well healed, no erythema, 5/5 strength with supraspinatus testing, minimal discomfort with range of motion Left shoulder examination shows decreased range of motion when compared to his right shoulder, 4+ out of 5 strength with supraspinatus testing, positive impingement signs, tenderness over his acromioclavicular joint, no instability Results Reviewed Results Reviewed: X-rays of the patient's left shoulder taken previously show severe acromioclavicular joint narrowing, a type 2 acromion, no acute bony abnormalities Assessment & Plan Assessment & Plan (1) Rotator cuff insufficiency of left shoulder: Code(s): M25.312 - Other instability, left shoulder Category: Medical (2) Right shoulder pain: Code(s): M25.511 - Pain in right shoulder Category: Medical Plan Mr. Aldana is doing well after undergoing right shoulder arthroscopic surgery on 12/23/2024. He does have progressively worsening left shoulder pain and weakness due to impingement syndrome and possible rotator cuff tearing. Thus, I will send the patient for an MRI of his left shoulder for further evaluation. I will see him back once the MRI is completed to discuss the findings and treatment options. Feel free to call me at any time should questions regarding his orthopedic management arise. I spent 22 minutes in reviewing the patient's records and imaging studies, seeing the patient and documenting in the medical record. Orders: Orders MR shoulder LT wo con 02/09/25 M25.312 - Other instability, left shoulder Coding Level of Care Code Est Pt Level 3 (04873) Complex EM visit Add On G2211 Diagnoses Rotator cuff insufficiency of left shoulder M25.312 Right shoulder pain M25.511
[2025-02-09 15:18] VITALS: BMI 26.0
--- OUTSIDE RECORDS SUMMARY | 2025-02-09 17:50 | XMS_ITS | Continuity of Care Document ---
Author Organization [facility] Address [address] [place] [address]- Care Team Providers Care Strike Warfare/Missile Systems Officer Name Role Phone Micky Rose MD Primary Care Physician Encounter [facility] Date(s): 01/09/25 - 02/08/25 [facility] [address] [place], [place] [address] Encounter Type: Triage Allergies, Adverse Reactions, Alerts [...] influenza virus vaccine, inactivated 05/15/13 Chivo rded [id number] 12y+ bivalent booster vax 08/09/22 Recorded SARS-CoV-2 [...] acel(Tdap) 7 07/10/10 Given 1Result Comment: [06/23/2018] [facility] [id number] 2Result Comment: [11/11/2013] per pt history 3Result Comment: [facility] [address] 4Result Comment: [facility] [address] 5Admin Note: [employer] [facility] 6Admin Note: [employer] [facility] 7Admin Note: [facility] azelastine 137 mcg/inh (0.1%) nasal spray 1 sprays, Nares, Both, 2 times a day, PRN Other Allergies, # 1 each, 5 Refills, Maintenance, 05/26/23 3:53:00 PM EDT, [place], [facility] #[id number], Partial fill upon patient request if the prescription is for a schedule II opioid drug., 1 sprays Nares, Both 2 times a day,x30 days,PRN:Other Allergies, 184.25, cm, 05/26/23 15:43:00 EDT, Height Start Date: 05/26/23 Stop Date: 11/22/23 Status: Ordered Quantity: 1.0 Unit: each Repeat number: 6 B-D PEN NDL SHRT [id number](01/13) SELENA B-D PEN NDL SHRT [id number](01/13) SELENA, See Instructions, # 100 each, 0 Refills, DIRECTED WITH SOLOSTAR PEN EVERY DAY, 184.25, cm, 02/06/21 10:11:00 EDT, Height Start Date: 10/17/21 Status: Ordered Quantity: 100.0 Unit: each Repeat number: 1 B-D PEN NDL SHRT [id number](01/13) SELENA B-D PEN NDL SHRT [id number](01/13) SELENA, See Instructions, # 100 each, 0 Refills, Maintenance, USE WITH LANTUS EVERY DAY, 10/04/24 11:00:00 AM EST, 184.25, cm, 10/03/24 15:33:00 EST, Height Start Date: 10/04/24 Status: Ordered Quantity: 100.0 Unit: each Repeat number: 1 B-D PEN NDL SHRT [id number](01/13) SELENA B-D PEN NDL SHRT [id number](01/13) SELENA, See Instructions, # 100 each, 3 Refills, Maintenance, DIRECTED WITH SOLOSTAR PEN EVERY DAY, 08/29/22 1:47:00 PM EST, 184.25, cm, 08/11/22 15:58:00 EST, Height Start Date: 08/29/22 Status: Ordered Quantity: 100.0 Unit: each Repeat number: 1 fluticasone 50 mcg/inh nasal spray 1 sprays, Nares, Both, 2 times a day, # 1 each, 11 Refills, Maintenance, 07/07/23 10:35:00 AM EST, [facility] #[id number], Partial fill upon patient request if the [...] 5 Refills, Maintenance, 05/11/24 3:02:00 PM EDT, [facility] #[id number], 184.25, cm, 05/05/24 15:28:00 EDT, Height Start Date: 05/11/24 Status: Ordered Quantity: 90.0 Unit: tablet Repeat number: 1 Lantus Solostar Pen 100 units/mL subcutaneous solution = 20 units, Subcutaneous Injection, Daily, # 15 mL, 11 Refills, Maintenance, 11/04/24 3:41:00 PM EST,[facility] #[id number], Partial fill upon patient request if the prescription is for a schedule II opioid drug., 184.25, cm, 10/03/24 15:33:00 EST, Height Start Date: 11/04/24 Status: Ordered Quantity: 15.0 Unit: mL Repeat number: 12 levothyroxine 150 mcg (0.15 mg) oral tablet 1 tablet, By Mouth, Daily, # 30 tablet, 5 Refills, Maintenance, 11/23/24 2:59:00 PM EDT, [facility] #[id number], 184.25, cm, 10/03/24 15:33:00 EST, Height Start Date: 11/23/24 Status: Ordered Quantity: 30.0 Unit: tablet Repeat number: 6 meloxicam 15 mg oral tablet 1 tablet, By Mouth, Daily, # 30 tablet, 5 Refills, Maintenance, 11/15/24 4:19:00 PM EDT, [facility] #[id number], 184.25, cm, 10/03/24 15:33:00 EST, Height Start Date: 11/15/24 Status: Ordered Quantity: 30.0 Unit: tablet Repeat number: 6 MetFORMIN (Eqv-Glucophage XR) 500 mg oral tablet, extended release 3 tablet, By Mouth, Daily, # 90 tablet, 5 Refills, Maintenance, 08/15/24 10:27:00 AM EST, [facility] #[id number], 184.25, cm, 05/05/24 15:28:00 EDT, Height Start [...] 200.0 Unit: each Repeat number: 6 Pen Garrett, 31 G x 8 mm BD Ultra Fine III See Instructions, # 100 each, Refills 3, Tot. Refills 3, Maintenance, use with Lantus insulinn daily, 01/13/25 4:47:00 PM EDT, Supply, 184.25, cm, 12/06/24 15:23:00 EDT, Height Start Date: 01/13/25 Status: Ordered Quantity: 100.0 Unit: each Repeat number: 4 Indications: Type 2 diabetes mellitus without complications; rosuvastatin 10 mg oral tablet 1 tablet, By Mouth, Daily, # 90 tablet, 1 Refills, Maintenance, 12/23/24 11:16:00 AM EDT, [facility] #[id number], 184.25, cm, 12/06/24 15:23:00 EDT, Height Start Date: 12/23/24 Status: Ordered Quantity: 90.0 Unit: tablet Repeat number: 1 Semglee (Prefilled Pen) 100 units/mL subcutaneous solution See Instructions, INJECT 20UNITS UNDER THE SKIN EVERY NIGHT AT BEDTIME TITRATE BY 2 UNITS EVERY 5 DAYS UP TO 60 UNITS EVERY DAY, # 15 mL, 5 Refills, Maintenance, 01/27/24 10:43:00 AM EDT, [facility] #[id number], 184.25, cm, 09/01/23 16:02:00 EST, Height Start Date: 01/27/24 Status: Ordered Quantity: 15.0 Unit: mL Repeat number: 1 sertraline 100 mg oral tablet 1 tablet = 100 mg, By Mouth, Daily, dose increase, # 30 tablet, 11 Refills, Maintenance, 10/03/24 3:42:00 PM EST, Tablet, [facility] #[id number], Partial fill upon patient request if the [...] Response Smoking Status Current every day sm yohana entered on: 01/31/15 Sex Sex Representation Male (finding) Patient Care team information Care Team Personnel Name: Micky Rose MD Position: S Physician - Primary Care Member Role: PCP Address: [address] [place] [phone]- Telecom: Care Team Related Persons Name: SHAKILA JORDAN Insurance Providers Guarantor name: MIKE JORDAN Health Plan Information #: 1 Payer: BLUE BENEFIT [employer] PPO Payer Identifier: NA Member Number: [id number] Group Number: [id number] Subscriber Identifier: [id number] Relationship to Subscriber: self Coverage Type: BLUE CROSS/BLUE SHIELD Coverage Verification Date: Telecom: Address:
== END 2025-02-09 15:30 | disposition home or self-care (01) ==
LOC: HO.HOS 15:12
PROVIDERS: PCP Internal Medicine; Visit Provider Orthopaedic Surgery
DX: M25.312 Other instability, left shoulder (principal); M25.511 Pain in right shoulder
CPT/HCPCS: 99213

== ENCOUNTER 2025-07-11 09:53 | Outpatient (AMB) | payer OTHER, SELFPAY ==
--- NOTE | 2025-07-11 09:58 | MHC.OFFVIS ---
Vital Signs 07/11/25 10:03 Height 6 ft 3 in Weight 210 lb BMI 26.2 Handedness Right Intake Visit Reasons: OV-Right shoulder pain- Rt Shld 12/23/24 , Neck pain Intake Note: Marcos is a 60 year old male who presents with complaints of progressively worsening neck pain which radiates down his right arm. The patient states that he did undergo cervical spine surgery approximately 20 years ago. He denies any fevers or chills. He also underwent right shoulder arthroscopic surgery on 12/23/2024. He states that his neck pain has gotten worse over the last few years in spite of continued non operative treatments. He has tried Tylenol, meloxicam and gabapentin which gave him minimal relief. He also reports intermittent weakness in his right arm. Allergies No Known Allergies Allergy (Verified 07/11/25 10:06) Medication List - Last Reconciled 07/11/25 by Deandre Cordoba MD gabapentin 600 mg PO TID insulin glargine-yfgn (Semglee (insulin glargine-yfgn) Pen) 10 units subcut BEDTIME levothyroxine 150 mcg PO DAILY meloxicam 15 mg PO DAILY metformin ER 500 mg PO TID rosuvastatin 10 mg PO DAILY sertraline 100 mg PO DAILY PFSH Medical History (Updated 07/11/25 @ 10:33 by Deandre Cordoba MD) Right shoulder pain Sleep apnea Depression Diabetes Elevated cholesterol Hypothyroid Surgical History (Updated 12/23/24 @ 08:16 by Cecily Huff RN) H/O: vasectomy Hx of hand surgery History of open reduction and internal fixation (ORIF) procedure Hx of fusion of cervical spine Hx of shoulder surgery Hx of arthroscopic knee surgery Social History Comment: counts correct Patient Tobacco Use Status: Current everyday Tobacco user Tobacco use type: Cigarette Cigarette Packs Per Day: 1 Cigarettes Per Day: 20.0 Physical Exam Vital Signs: BMI result Body Mass Index 26.2 Const Other: Well-nourished well-developed very friendly male awake alert and oriented x3 in no acute distress Neck Other: Cervical spine examination shows right-sided paraspinal muscle tenderness, pain with range of motion, positive Spurling's test, 4/5 strength with testing of his right biceps and wrist extensors when compared to 5/5 strength on his left side Extrem Other: Right shoulder examination shows that the surgical incisions are well healed, no erythema, slightly decreased range of motion when compared to his left shoulder, mild discomfort with resisted forward flexion, 5/5 strength with supraspinatus testing Office Procedures AMB Joint Injection/Aspiration Joint Injection/Aspiration Primary Site: right shoulder Prep: site was prepped using aseptic technique Injected: 40 mg of, DepoMedrol, with 4 mL of and 1% plain lidocaine Procedure: The patient tolerated the procedure well Coding - Large joint Procedure code (CPT) selection complete Assessment & Plan Assessment & Plan (1) Neck pain on right side: Code(s): M54.2 - Cervicalgia Category: Medical (2) Right shoulder pain: Code(s): M25.511 - Pain in right shoulder Category: Medical Plan Mr. Aldana presents with progressively worsening neck pain which radiates into his right arm as well as associated right arm weakness possibly due to cervical stenosis or a disc herniation. Thus, I will send the patient for an MRI of his cervical spine for further evaluation. He also has right shoulder pain due to rotator cuff tendinosis. The risks and benefits of a right shoulder cortisone injection were discussed at length with the patient. The patient wished to proceed. Tolerated the injection well. He will continue with his range of motion exercises. He will contact me prior to his MRI should his symptoms worsen in any way. Feel free to call me at any time should questions regarding his orthopedic management arise. I spent 22 minutes in reviewing the patient's records and imaging studies, seeing the patient and documenting in the medical record. Orders: Orders MR cervical spine wo con Today M54.2 - Cervicalgia AMB Joint Injection/Aspiration Today M25.511 - Pain in right shoulder Coding Level of Care Code Est Pt Level 3 (14529) Complex EM visit Add On G2211 Diagnoses Neck pain on right side M54.2 Right shoulder pain M25.511 CPT Codes Coding - Large joint: - Large joint ([id number])
[2025-07-11 10:03] VITALS: BMI 26.2
--- OUTSIDE RECORDS SUMMARY | 2025-07-11 11:16 | XMS_ITS | Data Portability ---
Author Organization [place] [facility] [place] Address [address] [place] [phone] Care Team Providers Care Avionics Repair Technician Name Role Phone MARY MEYERS Referring Provider [phone] Assessment Encounter Date Assessment Date Assessment LastModified [...] progress to a targeted home exercise program. Hykd-dne-toloyxd anti-inflammatory medications with appropriate GI precautions or [...] examination, recommended tests/diagnostic imaging, and treatment plan. [email or web address] Not available 03/07/2024 16:38:20 04/13/2024 04/13/2024 Marcos [...] have not improved, sooner for any complications. [email or web address] Not available 04/13/2024 16:06:12 Plan of Treatment Reminders Order Date Submit Date Provider Last Modified By Organization Details Last Modified Time Details Appointments None recorded. Lab None recorded. Referral None recorded. Procedures None recorded. Surgeries None recorded. Imaging XR, shoulder, 2 [facility], [address], [place], [address], 4 09:38:06 XR, knee, 4 or more view 2023 024 [email or web address] 9 [facility], [address], [place], [address], 4 06:47:30 Medication Orders lidocaine (PF) 100 mg/5 mL (2 %) injection syringe 2023 024 [facility] #[id number], [address], [place], [id number], 4 16:09:04 triamcinolo ne acetonide 40 mg/mL suspension for injection 2023 024 [facility] #[id number], [address], [place], [place], [id number], 4 16:09:04 lidocaine (PF) 100 mg/5 mL (2 %) injection syringe 2023 024 Not available 4 16:01:41 triamcinolo ne acetonide 40 mg/mL suspension for injection 2023 024 Not available 16:01:41 Patient TargetsNo targets recorded. Patient Instructions Encounter Date Encounter Id Patient Instructions Last Modified By Organization Details Last Modified Time 03/07/2024 [id number] Radiographs: 4 views of the Right knee(s) were obtained in the [place] office on 03/07/2024 including AP, West, lateral (weightbearing), and sunrise. X-rays demonstrated normal bony mineralization. Joint spaces decrease medially subchondral sclerosis and osteophytosis. No evidence of acute injury or fracture. Findings: Osteoarthritis Right Knee. X-ray interpretation by: KANU Raza Not available 03/07/2024 16:37:29 04/13/2024 [id number] Radiographs: 4 Views of the Right shoulder were obtained in the [place] office on 04/13/2024 including AP, Grashey, Y and axillary views. X-rays demonstrated normal bony mineralization. Moderate degenerative changes in the AC joint with no widening. . Glenohumoral joint space moderately narrowed. No abnormal calcifications in the lateral shoulder. No evidence of acute injury or fracture. Interpretation by: KANU [email or web address] Not available 04/13/2024 16:10:27 Reason for Referral None Reported. Problems Name Problem SNOMED Code Status Onset Date Resolution Date Notes Provider Name and Address Organization Details Recorded Time Osteoarthri tis of right knee joint 4703445676615 00 Active [address], [place], [address], [place] [facility], P 4 16:35:48 Impingement syndrome of right shoulder region 2265425701318 02 Active [address], [place], [address], [place] [facility], [facility] 4 16:08:18 Arthritis of right glenohumera l joint 3239467657686 109 Active [address], [place], [address], [place] [facility], [facility] 4 16:08:43 Problem Notes None recorded. Procedures Surgical History Date Name Laterality Status Provider Name and Address Organization Details Recorded Time 4 GLENYS Subacromial Shoulder Inj completed [address], [place], [address], [place] [facility], P 04/13/2024 16:04:22 GLENYS Knee Injection completed [address], [place], [address], [place] [facility], P 03/07/2024 16:34:45 Knee Surgery completed [facility] [place] [facility], P 03/07/2024 16:09:06 fusion completed [facility] [place] [facility], P 03/07/2024 16:09:13 Imaging Results None recorded. [...] Not Available Not Available Not Avai lable Semglee (insulin glargine-yfgn ) Pen 100 unit/mL (3 [...] Updated DateTime 03/07/2024 190.5 cm 30 kg/m2 650820.[address] [place] [facility], 03/07/2024 16:07:42 Social History None recorded. Functional Status Question Answer Note LastModified by Organizat ion Details LastModified Time Do you use any illicit or recreational drugs? No Information not available 03/07/2024 Do you or have you ever used any other forms of tobacco or nicotine? No Information not available 03/07/2024 What is your level of alcohol consumption? None Information not available 03/07/2024 Mental Status None recorded. Family History Relationship Description Onset Age of this Age Resolved Age Notes LastModified by Organization Details LastModified Time Mother Arthritis Not available 03/07/2024 16:08:55 Sister Arthritis Not available 03/07/2024 16:08:55 Medical History Condition Response Diabetes Y Past Encounters Encounter ID Performer Location Encounter Start Date Encounter Closed Date Diagnosis/Indication Diagnosis SNOMED-CT Code Diagnosis ICD10 Code Diagnosis IMO Codes Diagnosis Note [id number] ANSELMO AGUIRRE PA-C [facility] [address] [place] [address] 03/07/2024 15:29:35 03/07/2024 16:31:36 Pain of right knee joint 9464953903 51374 M25.561 Additional diagnosis detail: Pain in joint of right knee Osteoarthr itis of right knee joint 2285673289 95946 M17.11 Additional diagnosis detail: Primary osteoarthr itis of right knee [id number] KANU RAZA [place] [address] [place] [address] 04/13/2024 14:56:37 04/13/2024 16:03:26 Pain of right shoulder joint 6109009912 5166721 M25.511 819666 Impingemen t syndrome of right shoulder region 2449525311 27380 M75.41 [id number] Arthritis of right glenohumeral joint 7851310599 868021 M19.011 [id number] Health Concerns Section Related Observation LastModified by Organization Detai ls LastModified Time None Recorded Concern Status LastModified by Organization Details LastModified Time None Recorded Advance Directives Directive None Recorded Payers Insurance Date Sequence Insurance Name Policy Number Policy Huff Covered Member ID Huff Member ID Guarantor Name 04/11/2024 1 [id number] Marcos Aldana [id number] Marcos Aldana Notes Date Note Type Note Provider Name and Address Organization Details Recorded Time 03/07/2024 text/html ROS as noted in the HPI Patient is a 59-year-old male who presents [...] have some lateral knee pain as well. ANSELMO AGUIRRE PA-C [address], [place], [address], [place] [facility] 03/07/2024 16:40:30 04/13/2024 text/html ROS as noted in the HPI Marcos is a 59-year-old male who presents today with right shoulder pain. Symptoms started 40 years ago. He had arthroscopy 20 years ago. 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 He is tolerated his symptoms over the years. Unfortunately, his symptoms were exacerbated a few months ago. He was looking away from his dog who suddenly ran and jerked his shoulder. He had increased pain which he was hoping would improve. Symptoms have persisted. He presents today for orthopedic consultation. No neck pain. No numbness or tingling. ANSELMO AGUIRRE PA-C [address], [place], [address], [place] [facility] 04/13/2024 16:11:11
--- OUTSIDE RECORDS SUMMARY | 2025-07-11 11:16 | XMS_ITS | Clinical Summary ---
Author Organization [facility] [address] Address [address] [place] [address] Phone Care Team Providers Care Estate Attorney Name Role Phone Micky Rose MD Primary Care Provider [phone] Allergies No known active allergies Medications sertraline [...] Problem Noted Date Diagnosed Date Diabetes mellitus ([facility] V24, [facility] V28) Hyperlipidemia 10/25/2024 Anxiety 10/25/2024 Colon polyp Assessment & Plan (10/25/2024 2:56 PM EST): 59-year-old gentleman with history of adenomatous polyps presenting for follow- up. Current symptoms include change in bowel pattern. He denies again he is aware that he is overdue for his surveillance colonoscopy. 1. Plan for colonoscopy at [facility] in the AM. Will use GoLytely [...] panel; Future US Abdomen Complete; Future Depression Surgical History Surgery Date Site/Laterality Comments LIVER BIOPSY PERCUTANEOUS (42530) 11/29/2017 - 12/28/2017 steatohepatitis COLONOSCOPY W/ POLYPECTOMY [...] drink = 0.6 oz pur e alcohol) Interpersonal Safety Answer Date Record ed Physical Abuse Unrecognized value 01/13/2025 Verbal Abuse Unrecognized value 01/13/2025 Sex and Gender Information Value Date Recorded Sex Assigned at Male 10/26/2024 11:30 AM EST Legal Sex Male 1:03 AM EST Gender Identity Male 10/26/2024 11:30 AM EST Sexual Orientation Straight 10/26/2024 11 :30 AM EST Obstetrics History Last Filed Vital Signs Vital Sign Reading Time Taken Comments Blood Pressure 116/70 01/13/2025 8:04 AM EDT Pulse 77 01/13/2025 8:04 AM EDT Temperature 36.7 C (98 F) 01/13/2025 7:44 AM EDT Respiratory Rate 18 01/13/2025 8:04 AM EDT Oxygen Saturation 98% 01/13/2025 8:04 AM EDT Inhaled Oxygen Concentration - - Weight 104 kg (230 lb) 01/13/2025 7:09 AM EDT Height 190.5 cm (6' 3 ) 01/13/2025 7:09 AM EDT Body Mass Index 28.75 01/13/2025 7:09 AM EDT Plan of Treatment Health Maintenance Due Date Last Done Comments Diabetes: Annual GFR (Glomerular Filtration Rate) 1965 Diabetes: Annual Foot Exam 1973 Diabetes: Annual Retina Eye Exam 1973 RSV Immunization Adult Patients (1 - Risk 50-74 years 1-dose series) 2013 Pneumococcal Vaccine: 50+ Years (2 of 2 - PCV) 10/08/2016 10/08/2015 Zoster Vaccines (2 of 2) 09/11/2020 07/17/2020 Cholesterol Screening (Lipid Panel) 08/29/2024 HIV Screening 08/29/2024 Hepatitis C Screening 08/29/2024 Social Influencers of Health Screening 08/29/2024 Depression Screening 08/31/2024 Diabetes: Annual Urine Albumin-Creatinine Ratio (uACR) 10/25/2024 Diabetes: Blood Sugar Control Test (HGBA1C) 10/25/2024 COVID-19 Vaccine ( season) 2025 08/09/2022, 09/10/2021, 12/29/2020, Additional history exists Influenza Vaccine (#1) 2025 2, 09/10/2021, 07/17/2020, Additional history exists DTaP,Tdap,and Td Vaccines (3 - Td or Tdap) 08/14/2033 08/14/2023, 07/10/2010 Colorectal Cancer Screening: Colonoscopy 01/13/2035 01/13/2025, 10/22/2017 HIB Vaccines Aged Out No longer eligi [...] Procedure Name Priority Date/Time Associated Diagnosis Comments COLONOSCOPY Routine 01/13/2025 7:43 AM EDT Adenomatous polyp of colon, unspecified part of colon from Last 3 Months or Most Recently Relevant to Health Maintenance Results * COLONOSCOPY Anesthesia - MAC; [facility] ENDOSCOPY (01/13/2025 7:43 AM EDT) Anatomical Region Laterality Modality Other 01/13/2025 7:27 AM EDT Impressions 01/13/2025 7:42 AM EDT - Diverticulosis in the sigmoid colon. - Non-bleeding internal hemorrhoids. - The examination was otherwise normal on direct and retroflexion views. - No specimens collected. Recommendation: - Discharge patient to home. - High fiber diet. - Continue present medications. - Repeat colonoscopy in 5 years for surveillance. - Return to GI office PRN. Narrative 01/13/2025 7:42 AM EDT [facility] GI Patient Name: Marcos Aldana Procedure Date: 01/13/2025 7:27 AM Date of : 1965 Age: 59 Room: ROOM 14 Gender: Male Note Status: Finalized Attending MD: Ray Agosto MD, Procedure Date No Time: 01/13/2025 Procedure: Colonoscopy Indications: High risk colon cancer surveillance: Personal history of colonic polyps Providers: Ray Agosto MD Referring MD: Ray Agosto MD Medicines: Monitored Anesthesia Care Complications: No immediate complications. Estimated Blood Loss: Estimated blood loss: none. Procedure: Pre-Anesthesia Assessment: - ASA Grade Assessment: II - A patient with mild systemic disease. - After reviewing the risks and benefits, the patient was deemed in satisfactory condition to undergo the procedure. After I obtained informed consent, the scope was passed under direct vision. Throughout the procedure, the patient's blood pressure, pulse, and oxygen saturations were monitored continuously.The Colonoscope was introduced through the anus and advanced to the cecum, identified by appendiceal orifice and ileocecal valve. The colonoscopy was performed without difficulty. The patient tolerated the procedure well. The quality of the bowel preparation was good. Findings: Multiple small and large-mouthed diverticula were found in the sigmoid colon. Non-bleeding internal hemorrhoids were found during retroflexion. The hemorrhoids were small. The exam was otherwise without abnormality on direct and retroflexion views. Procedure Code(s): --- Professional --- G0105, Colorectal cancer screening; colonoscopy on individual at high risk Diagnosis Code(s): --- Professional --- Z86.010, Personal history of colonic polyps CPT copyright 2020 [employer]. All rights reserved. The codes documented in this report are preliminary and upon bulldozer operator review may be revised to meet current compliance requirements. Ray Agosto MD 01/13/2025 7:42:29 AM This report has been signed electronically.Ray Agosto MD Number of Addenda: 0 Note Initiated On: 01/13/2025 7:27 AM Scope In: Scope Out: Endoscopy Department at [address] [address] Procedure Note Ray Agosto MD - 01/13/2025 [facility] GI Patient Name: Marcos Aldana Procedure Date: 01/13/2025 7:27 AM Date of : 1965 Age: 59 Room: ROOM 14 Gender: Male Note Status: Finalized Attending MD: Ray Agosto MD, Procedure Date No Time: 01/13/2025 Procedure: Colonoscopy Indications: High risk colon cancer surveillance: Personalhistory of colonic polyps Providers: Ray Agosto MD Referring MD: Ray Agosto MD Medicines: Monitored Anesthesia Care Complications: No immediate complications. Estimated Blood Loss: Estimated blood loss: none. Procedure: Pre-Anesthesia Assessment: - ASA Grade Assessment: II - A patient with mild systemic disease. - After reviewing the risks and benefits, thepatient was deemed in satisfactory condition to undergo the procedure. After I obtained informed consent, the scope was passed under direct vision. Throughout theprocedure, the patient's blood pressure, pulse, and oxygen saturations were monitored continuously.The Colonoscope was introduced through the anus and advanced to the cecum, identified by appendiceal orifice and ileocecal valve. The colonoscopy was performed without difficulty. The patient tolerated the procedure well. The quality of the bowel preparation was good. Findings: Multiple small and large-mouthed diverticula were found in the sigmoid colon. Non-bleeding internal hemorrhoids were found during retroflexion. The hemorrhoids were small. The exam was otherwise without abnormality ondirect and retroflexion views. Procedure Code(s): --- Professional --- G0105, Colorectal cancer screening; colonoscopy on individual at high risk Diagnosis Code(s): --- Professional --- Z86.010, Personal history of colonic polyps CPT copyright 2020 [employer]. All rights reserved. The codes documented in this report are preliminary and upon bulldozer operator reviewmay be revised to meet current compliance requirements. Ray Agosto MD 01/13/2025 7:42:29 AM This report has been signed electronically.Ray Agosto MD Number of Addenda: 0 Note Initiated On: 01/13/2025 7:27 AM Scope In: Scope Out: Endoscopy Department at [facility] - [address] [place] [id number] IMPRESSION: - Diverticulosis in the sigmoid colon. - Non-bleeding internal hemorrhoids. - The examination was otherwise normal on directand retroflexion views. - No specimens collected. Recommendation: - Discharge patient to home. - High fiber diet. - Continue present medications. - Repeat colonoscopy in 5 years for surveillance. - Return to GI office PRN. Ray Agosto MD GI~PROCEDURE ORDERABLES Final Result from Last 3 Months or Most Recently Relevant to Health Maintenance Insurance [employer] [facility] [place] [address] Care Teams Estate Attorney Relationship Specialty Start Date End Date Micky Rose MD [address] [place] [address] PCP - General Internal Medicine 08/29/24
== END 2025-07-11 10:32 | disposition home or self-care (01) ==
LOC: HO.HOS 09:54
PROVIDERS: PCP Internal Medicine; Visit Provider Orthopaedic Surgery
DX: M54.2 Cervicalgia (principal); M25.511 Pain in right shoulder
CPT/HCPCS: 20610; 99213

== ENCOUNTER → 2025-07-11 09:53 | Outpatient (BNVA) | payer OTHER, SELFPAY | PROVIDERS: PCP Internal Medicine; Visit Provider Orthopaedic Surgery | DX: M54.2 Cervicalgia (principal); M25.511 Pain in right shoulder | CPT/HCPCS: 20610; J1010; J2003 ==

== ENCOUNTER 2025-07-15 10:11 | Outpatient (REF) | payer OTHER, SELFPAY ==
--- NOTE | ~2025-07-15 | MR_ITS ---
EXAMINATION: MR CERVICAL SPINE WITHOUT CONTRAST CLINICAL INFORMATION: M. 54.2. COMPARISON: None available. TECHNIQUE: MRI of the cervical spine was obtained using routine sequences without contrast. FINDINGS: Craniocervical junction is intact. Normal position of the cerebellar tonsils. No bone marrow STIR signal abnormality. Paramagnetic field distortion secondary to metallic hardware plate C7-T1 level. Pronounced lordosis at C7-T1. Multilevel marginal osteophyte formation and disc desiccation C2-3 to C5-6 level. Grade 1 retrolisthesis C3-4, C4-5 and to a lesser extent C5-6. Buckling deformity of the dorsal aspect of the thecal sac secondary to ligamentum flavum hypertrophy at C3-4. Dural ectasia, C7-T1 secondary to postsurgical changes. Cervical spinal cord signal is normal. C2-3: Central disc osteophyte compresses formation resulting in ventral indentation to the thecal sac. No cord compression. No neuroforamina stenosis. C3-4: Broad-based disc osteophyte compresses formation. CSF effacement of the thecal sac and flattening of the spinal cord. Bilateral neuroforamina narrowing. C4-5: Grade 1 retrolisthesis. Central spinal canal stenosis. No cord compression. No neuroforamina stenosis. C5-6: Broad-based disc osteophyte compresses formation resulting in ventral spinal cord deformity. Bilateral neuroforamina narrowing, right greater than left. C6-7: No disc herniation.. No neuroforamina stenosis. C7-T1: Post surgical changes. No neuroforamina stenosis. No prevertebral compartment hematoma, mass or fluid collection. Flow-void signal within the main vessels is normal. Codominant vertebral arteries. MR/MR cervical spine wo con IMPRESSION: Multilevel spondylosis with a swan deformity at the cervical upper thoracic spine resulting in grade 1 retrolisthesis C3-4 and C4-5 level with central spinal canal stenosis likely cord compression without cord edema and or myelopathy at C3-4. Electronically signed by: Norman Vance MD 07/17/2025 07:38 AM EST
--- OUTSIDE RECORDS SUMMARY | 2025-07-15 10:29 | XMS_ITS | Data Portability ---
Author Organization [place] [facility] [place] Address [address] [place] [address] Care Team Providers Care Floor Sander Name Role Phone MARY MEYERS Referring Provider [phone] Assessment Encounter Date Assessment Date Assessment LastModified [...] progress to a targeted home exercise program. [id number] anti-inflammatory medications with appropriate GI precautions or [...] examination, recommended tests/diagnostic imaging, and treatment plan. [email or web address] Not available 03/07/2024 16:38:20 04/13/2024 04/13/2024 Marcos [...] shoulder, 2 or more view 2023 024 [facility], [address], [place], [address], 4 09:38:06 XR, knee, 4 or more view 2023 024 [email or web address] 9 [facility], [address], [place], [address], 4 06:47:30 Medication Orders lidocaine (PF) 100 mg/5 mL (2 %) injection syringe 2023 024 [facility] 21 [id number], [address], [place], [place], [id number], 4 16:09:04 triamcinolo ne acetonide 40 mg/mL suspension for injection 2023 024 [facility] 21 [id number], [address], [place], [place], [phone], 4 16:09:04 lidocaine (PF) 100 mg/5 mL (2 %) injection syringe 2023 024 Not available 4 16:01:41 triamcinolo ne acetonide 40 mg/mL suspension for injection 2023 024 Not available 16:01:41 Patient TargetsNo targets recorded. Patient Instructions Encounter Date Encounter Id Patient Instructions Last Modified By Organization Details Last Modified Time 03/07/2024 [id number] Radiographs: 4 views of the Right knee(s) were obtained in the [place] office on 03/07/2024 including AP, West, lateral (weightbearing), and sunrise. X-rays demonstrated normal bony mineralization. Joint spaces decrease medially subchondral sclerosis and osteophytosis. No evidence of acute injury or fracture. Findings: Osteoarthritis Right Knee. X-ray interpretation by: KANU Raza Not available 03/07/2024 16:37:29 04/13/2024 [id number] Radiographs: 4 Views of the Right shoulder were obtained in the [place] office on 04/13/2024 including AP, Grashey, Y [...] Time Osteoarthri tis of right knee joint 4699078586900 00 Active [address], [place], [address], [place] [facility], P 4 16:35:48 Impingement syndrome of right shoulder region 6139815684806 02 Active [address], [place], [address], [place] [facility], P 4 16:08:18 Arthritis of right glenohumera l joint 5785490990672 109 Active [address], [place], [address], [place] [facility], P 4 16:08:43 Problem Notes None recorded. Procedures Surgical History Date Name Laterality Status Provider Name and Address Organization Details Recorded Time 4 GLENYS Subacromial Shoulder Inj completed [address], [place], [address], [place] [facility], P 04/13/2024 16:04:22 GLENYS Knee Injection completed [address], [place], [address], [place] [facility], P 03/07/2024 16:34:45 Knee Surgery completed [facility] [place] [facility], P 03/07/2024 16:09:06 fusion completed [facility] [place] [facility], P 03/07/2024 16:09:13 Imaging Results None recorded. [...] Updated DateTime 03/07/2024 190.5 cm 30 kg/m2 099914.[address] [facility], 03/07/2024 16:07:42 Social History None recorded. Functional [...] ICD10 Code Diagnosis IMO Codes Diagnosis Note [id number] ANSELMO AGUIRRE PA-C [facility] [address] [place] [address] 03/07/2024 15:29:35 03/07/2024 16:31:36 Pain of right knee joint [id number] 49477 M25.561 Additional diagnosis detail: Pain in joint of right knee Osteoarthr itis of right knee joint 1413194516 51606 M17.11 Additional diagnosis detail: Primary osteoarthr itis of right knee [id number] [address] [place] [address] [place] [address] 04/13/2024 14:56:37 04/13/2024 16:03:26 Pain of right shoulder joint 6039420244 9082720 M25.511 853470 Impingemen t syndrome of right shoulder region 4668384221 95065 M75.41 [id number] Arthritis of right glenohumeral joint 2471320578 718131 M19.011 [id number] Health Concerns Section Related Observation LastModified by Organization Detai ls LastModified Time None Recorded Concern Status LastModified by Organization Details LastModified Time None Recorded Advance Directives Directive None Recorded Payers Insurance Date Sequence Insurance Name Policy Number Policy Huff Covered Member ID Huff Member ID Guarantor Name 04/11/2024 1 [id number] Marcos Aldana [id number] Marcos Aldana Notes Date Note Type [...] ANSELMO AGUIRRE PA-C [address], [place], [address], [place] [facility], P 03/07/2024 16:40:30 04/13/2024 text/html ROS as noted in the HPI Marcos is a 59-year-old male who presents today with right shoulder pain. Symptoms started 40 years ago. He had arthroscopy 20 years ago. 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 He is tolerated his symptoms over [...] ANSELMO AGUIRRE PA-C [address], [place], [address], [place] [facility], P 04/13/2024 16:11:11
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
== END 2025-07-15 10:12 | disposition home or self-care (01) ==
LOC: HO.MRI 10:11
PROVIDERS: PCP Internal Medicine; Visit Provider Orthopaedic Surgery
DX: M54.2 Cervicalgia (principal)
CPT/HCPCS: 72141

== ENCOUNTER → 2025-07-15 10:27 | Outpatient (BNV) | payer OTHER, SELFPAY | PROVIDERS: PCP Internal Medicine; Visit Provider Radiology Diagnostic Radiology | DX: M47.812 Spondylosis without myelopathy or radiculopathy, cervical region (principal); M48.02 Spinal stenosis, cervical region | CPT/HCPCS: 72141 ==

== ENCOUNTER 2025-07-24 10:55 | Outpatient (AMB) | payer OTHER, SELFPAY ==
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
--- OUTSIDE RECORDS SUMMARY | 2025-07-24 14:03 | XMS_ITS | Clinical Summary ---
Author Organization [facility] [address] [facility] Address [address] [place] [address] Phone Care Team Providers Care [facility] Nurse Practitioner Name Role Phone Micky Rose MD Primary Care Provider [phone] Allergies No known active allergies Medications sertraline [...] Problem Noted Date Diagnosed Date Diabetes mellitus ([facility] V24, [facility] V28) Hyperlipidemia 10/25/2024 Anxiety 10/25/2024 Colon polyp Assessment & Plan (10/25/2024 2:56 PM EST): 59-year-old gentleman with history of adenomatous polyps presenting for follow- up. Current symptoms include change in bowel pattern. He denies again he is aware that he is overdue for his surveillance colonoscopy. 1. Plan for colonoscopy at [facility] in the AM. Will use [...] Surgery Date Site/Laterality Comments LIVER BIOPSY PERCUTANEOUS (20802) 11/29/2017 - 12/28/2017 steatohepatitis COLONOSCOPY W/ POLYPECTOMY [...] Maintenance Results * COLONOSCOPY Anesthesia - MAC; [facility] ENDOSCOPY (01/13/2025 7:43 AM EDT) Anatomical Region [...] office PRN. Narrative 01/13/2025 7:[address] [facility] GI Patient Name: Marcos Aldana Procedure Date: [...] history of colonic polyps CPT copyright 2020 [employer]. All rights reserved. The codes documented in this report are preliminary and upon dinkey mechanic review may be revised to meet current compliance requirements. Ray Agosto MD 01/13/2025 7:42:29 AM This report has been signed electronically.Ray Agosto MD Number of Addenda: 0 Note Initiated On: 01/13/2025 7:27 AM Scope In: Scope Out: Endoscopy Department at [address] [address] Procedure Note Ray Agosto MD - 01/13/[address] [facility] GI Patient Name: Marcos Aldana Procedure Date: 01/13/2025 7:27 AM Date of : 1965 Age: 59 Room: ROOM 14 Gender: Male Note Status: Finalized Attending MD: Ray Agosto MD, Procedure Date No Time: 01/13/2025 Procedure: Colonoscopy Indications: High risk colon cancer surveillance: Personalhistory of colonic polyps Providers: Ray Agosto MD Referring MD: aRy Agosto MD Medicines: Monitored Anesthesia Care Complications: [...] history of colonic polyps CPT copyright 2020 [employer]. All rights reserved. The codes documented in this report are preliminary and upon dinkey mechanic reviewmay be revised to meet current compliance requirements. Ray Agosto MD 01/13/2025 7:42:29 AM This report has been signed electronically.Ray Agosto MD Number of Addenda: 0 Note Initiated On: 01/13/2025 7:27 AM Scope In: Scope Out: Endoscopy Department at [facility] - [address] [place] [id number] IMPRESSION: - Diverticulosis in the sigmoid colon. [...] to Health Maintenance Insurance [employer] [facility] [place] [address] Care Teams [facility] Nurse Practitioner Relationship Specialty Start Date End Date Micky Rose MD [address] [place] [address] PCP - General Internal Medicine 08/29/24
--- OUTSIDE RECORDS SUMMARY | 2025-07-24 14:03 | XMS_ITS ---
Author Name [facility] [place]) Organization Unknown History of Medication Use Medication Directions Dispensed Refills Start Date End Date Stat lidocaine (PF) 100 mg/5 mL (2 %) injection syringe Take 4 mL by injection route. 04/13/2024 active triamcinolone acetonide 40 mg/mL suspension for injection Take 40 mg by injection route. 04/13/2024 active lidocaine (PF) 100 mg/5 mL (2 %) injection syringe active triamcinolone acetonide 40 mg/mL suspension for injection active azelastine 137 mcg (0.1 %) nasal spray USE 1 SPRAY IN EACH NOSTRIL TWICE DAILY NEEDED FOR ALLERGIES active fluticasone propionate 50 mcg/actuation nasal spray,suspension SHAKE LIQUID AND USE 1 SPRAY IN EACH NOSTRIL TWICE DAILY active FreeStyle Lite Strips USE TO TEST BLOOD SUGAR EVERY DAY active gabapentin 600 mg tablet TAKE 1 TABLET BY MOUTH THREE TIMES DAILY active levothyroxine 150 mcg tablet TAKE 1 TABLET BY MOUTH DAILY active meloxicam 15 mg tablet TAKE 1 TABLET BY MOUTH DAILY active metformin ER 500 mg tablet,extended release 24 hr TAKE 3 TABLETS BY MOUTH DAILY active rosuvastatin 10 mg tablet TAKE 1 TABLET BY MOUTH DAILY active Semglee (insulin glargine-yfgn) Pen 100 unit/mL (3 mL) subcutaneous INJECT 20UNITS UNDER THE SKIN EVERY NIGHT AT BEDTIME TITRATE BY 2 UNITS EVERY 5 DAYS UP TO 60 UNITS EVERY DAY active Problems Problem Status Onset Date Problem Type Date of Resoluti on Source Osteoarthritis of right knee joint active 2024-03-07 ProblemAct [facility]_AONECT Impingement syndrome of right shoulder region active 2024-04-13 ProblemAct ENS_AO NECT Arthritis of right glenohumeral joint active 2024-04-13 ProblemAct ENS_AONEC T Encounters Encounter Type Encounter Reason Primary Diagnosis Location Date Ambulatory [facility] 04/14/2024 Ambulatory [facility] 04/13/2024 Ambulatory [facility] 03/23/2024 Ambulatory [facility] 03/08/2024 Ambulatory [facility] 03/07/2024 Ambulatory [facility] 03/07/2024 Ambulatory [facility] 03/07/2024 Ambulatory [facility] 03/07/2024
== END 2025-07-24 12:14 | disposition home or self-care (01) ==
LOC: HO.HNS 10:56
PROVIDERS: PCP Internal Medicine; Referring Provider Orthopaedic Surgery; Visit Provider Physician Assistant
DX: M54.12 Radiculopathy, cervical region (principal)
CPT/HCPCS: 99204